=== PATIENT | female | born 1995 | race Caucasian/White ===

== ENCOUNTER 2018-06-29 09:16 | Emergency (ER) | payer OTHER, SELFPAY ==
[2018-06-29 09:23] VITALS: BP 105/64; PULSE 83; RESP 20; TEMP 36.4; O2SAT 99
--- NOTE | 2018-06-29 09:24 | ED_ITS ---
HPI - General Adult General Chief complaint: Urogenital-Female Stated complaint: Thinks kidney infection and sharp pain left chest Time Seen by Provider: 06/29/18 09:23 Source: patient Mode of arrival: ambulatory Limitations: no limitations History of Present Illness HPI narrative: Otherwise healthy 23-year-old female here for evaluation of dysuria and now right-sided abdominal and right flank pain. Patient states she does have a history of urinary tract infections and also has a history of kidney infections. She states this feels like 1 of her prior kidney infections. Symptoms started approximately 3 days ago. Started with dysuria and has now moved up. Has had some nausea but no vomiting. No fevers. No vaginal bleeding. Had her menstrual cycle last week. Patient without history of kidney stones. She is also here with complaining of pain in her left armpit. Stated that that has been going on for several days as well just worsening over the past couple days. No fevers. Was ?sick? last week. Related Data Home Medications Medication Instructions Recorded Confirmed levonorgestrel-ethinyl estrad 1 tab PO DAILY 06/29/18 06/29/18 [Orsythia] Previous Rx's Medication Instructions Recorded ondansetron 4 mg PO Q6-8H PRN #10 tab 06/29/18 sulfamethoxazole-trimethoprim 1 tab PO BID 14 Days #28 tab 06/29/18 [Bactrim DS] Allergies Allergy/AdvReac Type Severity Reaction Status Date / Time No Known Allergies Allergy Uncoded 12/01/17 12:41 Review of Systems Constitutional Reports fatigue, Denies fever(s) and Denies headache(s) ENT Ears, Nose, Mouth, and Throat: Denies headache(s) Cardiovascular Denies chest pain, Denies irregular heart rhythm, Denies palpitations and Denies dyspnea Comments: Left armpit pain Respiratory Denies cough and Denies dyspnea Gastrointestinal Gastrointestinal: Reports abdominal pain (Right-sided abdomen), Denies change in bowel habits, Denies diarrhea, Reports nausea and Denies vomiting Genitourinary Reports dysuria, Reports flank pain and Denies vaginal discharge Musculoskeletal Denies myalgias and Denies arthralgias Integumentary/Breasts Denies lesions and Denies rash Neurologic Denies headache(s) Endocrine Reports fatigue and Denies palpitations [facility] Medical History Healthy adult (Acute) Surgical History No pertinent past surgical history (Acute) Social History Smoking Status: Never smoker Exam Initial Vital Signs Initial Vital Signs: Vital Signs Temperature 97.6 F 06/29/18 09:23 Pulse Rate 83 06/29/18 09:23 Respiratory Rate 20 06/29/18 09:23 Blood Pressure 105/64 06/29/18 09:23 Pulse Oximetry 99 06/29/18 09:23 Const General: cooperative, healthy appearing, comfortable, well developed, well groomed and No acute distress Orientation: alert, awake and oriented x3 HENMT Head: normal to inspection and normocephalic Chest Breast Palpation: axillary lymphadenopathy (Left. The area of tenderness his a 2 cm freely movable tender or palpable firm mass in the left axilla consistent with a lymph node) Resp Effort & Inspection: normal respiratory effort Auscultation: clear to auscultation bilaterally Cardio Rate: regular rate Rhythm: regular rhythm GI Inspection: non-distended Palpation: soft, No firm, No rigid and No tender Back/Spine/Pelvis Back: CVA tenderness right Skin Lesions: no lesions Rashes: no rashes Neuro General: alert, awake and oriented x3 Cognition: normal cognition Speech: speech normal Motor: muscle tone normal throughout Sensory Exam: no sensory deficits noted Extrem General: normal to inspection and capillary refill normal Psych Appearance: grossly normal and well kempt Course Orders Ordered: ED Orders 06/29/18 09:34 Urine Culture Stat Urine Microscopic Stat Vital Signs - 8 hr 06/29/18 09:23 Temperature 97.6 F Pulse Rate 83 Respiratory Rate 20 Blood Pressure 105/64 Pulse Oximetry 99 Medical Decision Making Lab Data Lab Results 06/29/18 Range/Units 09:34 Urine RBC 1-5/hpf (0-5/HPF) Urine WBC >100/hpf H (0-5/HPF) Ur Squamous Epith Cells 1-5 /hpf Urine Bacteria Moderate (10-30) H (None) Urine Mucus 1+ H (Negative) Ur Culture Indicated? Specimen cultured Micro UA Comment Not Reportable Point of Care Testing Test Results Negative Urine Dip Bedside Urine Glucose Negative Bedside Urine Bilirubin - Negative Bedside Urine Ketone - Negative Urine Specific [place] 1.025 Bedside Urine Occult Blood +++ Bedside Urine pH 6.0 Bedside Urine Protein + 30 Bedside Urine Urobilinogen - Negative Bedside Urine Nitrite - Negative Bedside Urine Leukocytes +++ 500 Esterase Point of care testing: Point of Care Testing Test Results Negative Urine Dip Bedside Urine Glucose Negative Bedside Urine Bilirubin - Negative Bedside Urine Ketone - Negative Urine Specific [place] 1.025 Bedside Urine Occult Blood +++ Bedside Urine pH 6.0 Bedside Urine Protein + 30 Bedside Urine Urobilinogen - Negative Bedside Urine Nitrite - Negative Bedside Urine Leukocytes +++ 500 Esterase MDM Narrative Medical decision making narrative: Patient with left axillary lymphadenopathy. I discussed this with the patient. Informed her that if the area worsens or the skin over top the area becomes red she does need to be re-evaluated. Also informed her that if the lump slowly gets larger she does need to be re- evaluated as well. Her urine today is concerning for a urinary tract infection. Because she has some nausea and is moving up the right side into her right flank there is some concern about early pyelo. She is tolerating oral intake without any issue. She has never had a kidney stone before. She does have blood in her urine. I feel that since her symptoms started with dysuria and now is causing right flank pain, her clinical presentation, her history of kidney infections I feel just like this that a kidney stone is less likely so I will hold on a CT scan for now. Patient was given return precautions. She expressed understanding and agreement with plan. Discharge Plan Departure Patient Disposition: Home Clinical Impression: Lymphadenopathy, axillary, Urinary tract infection Instructions: DI for Kidney Infection, DI for Lymphadenopathy Activity Restrictions/Additional Instructions: Take all of the medications as directed. If the lump in her left armpit becomes larger, there develops a rash over the area, you develop fevers, then it does need to be re-evaluated. If her urinary symptoms do not improve over the next couple days or your unable to take the antibiotics you also need to be re-evaluated for this. Follow-up with your medical department. Prescriptions: New sulfamethoxazole-trimethoprim [Bactrim DS] 800-160 mg tablet 1 tab PO BID 14 Days Qty: 28 RF: 0 ondansetron 4 mg tablet,disintegrating 4 mg PO Q6-8H PRN (Reason: nausea and vomiting) Qty: 10 RF: 0 No Action levonorgestrel-ethinyl estrad [Orsythia] 0.1-20 mg-mcg tablet 1 tab PO DAILY RF: 0
[2018-06-29 09:51] LABS: Bacteria Urine Moderate (10-30); Culture Indicated Urine Specimen Cultured; Mucus Urine 1+ (Negative); RBC Urine 1-5/HPF (0-5/HPF); Squamous Epithelial Cell Urine 1-5 /HPF; WBC Urine >100/HPF (0-5/HPF)
== END 2018-06-29 10:10 | disposition home or self-care (01) ==
PROVIDERS: Emergency Provider Emergency Medicine
DX: N39.0 Urinary tract infection, site not specified (principal); R59.0 Localized enlarged lymph nodes
CPT/HCPCS: 81003; 81015; 81025; 87077; 87086; 87186; 99282; 99283

== ENCOUNTER 2018-07-23 14:16 | Emergency (ER) | payer OTHER, SELFPAY ==
[2018-07-23] VITALS (8 sets, daily range): BP systolic 93–114; BP diastolic 52–61; PULSE 82–99; RESP 14–16; TEMP 36.9; O2SAT 96–100
--- NOTE | 2018-07-23 15:06 | ED.HA ---
HPI - Headache <Milady Covarrubias PA-C - Last Filed: 07/23/18 21:31> General Chief Complaint: Headache Stated Complaint: states bad migraine, says sharp pain in chest Time Seen by Provider: 07/23/18 15:02 Source: patient Mode of arrival: ambulatory Limitations: no limitations History of Present Illness HPI Narrative: This 23-year-old female comes to ED with complaints of migraine headache for the last 4 days. She takes Maxalt and ibuprofen for this. She states that normally, headache will resolve if she rests in a dark quiet place and takes her medicines, however this time it has been waxing and waning, will resolve if she lays down to sleep, but comes back when she gets up again. She has nausea with this headache and states she does not typically with her migraines. She has not been vomiting. She has not had any urinary symptoms or bowel habit changes.she states that normally, she will feel migraines in the back of her head but this time it is more wrapping around from her temples and back of her neck. She denies any injury to her neck or shoulder area, states she is able to bend and move her neck okay, but feels tight. She has not had any recent upper respiratory symptoms, denies fever, chills, or sweats. She states that she has had swelling in her axillary nodes, mostly on the left recently and has been undergoing a workup for that including lab work and ultrasound with PCM. she reports that these were normal. She states that she does have mild cough occasionally, she denies any dyspnea today, but states that she does have some soreness in her chest when she breathes in and out that started around the same time as her headache. She denies any new pain or swelling in her extremities. She denies any recent travel. She denies any known exposures. She states that she does have TMJ and has been having pain in the right side of her jaw with chewing. She denies any possibility of , compliant with OCP. LMP 1 week ago. Related Data Home Medications Medication Instructions Recorded Confirmed levonorgestrel-ethinyl estrad 1 tab PO DAILY 06/29/18 06/29/18 [Orsythia] Previous Rx's Medication Instructions Recorded ondansetron 4 mg PO Q6-8H PRN #10 tab 11/07/18 Allergies Allergy/AdvReac Type Severity Reaction Status Date / Time No Known Allergies Allergy Uncoded 12/01/17 12:41 Review of Systems <Milady Covarrubias PA-C - Last Filed: 07/23/18 21:31> Review of Systems All systems reviewed & are unremarkable except as noted in HPI and below Exam <Milady Coavrrubias PA-C - Last Filed: 07/23/18 21:31> Narrative Exam Narrative: GENERAL APPEARANCE: Patient resting in the dark, in NAD HEENT: PERRL, EOMI, normal TMs and oropharynx NECK: Supple, tender anterior cervical nodes on the left, 1 is close to 1 cm in size. There are few smaller nodes on the right, nontender. No palpable supraclavicular or axillary nodes LUNGS: Clear to auscultation bilaterally. HEART: Rate and rhythm regular without murmur, normal S1 and S2, no S3 or S4. ABDOMEN: Soft, NT, ND, + BS x 4 quadrants NEUROLOGIC: Alert and oriented, normal speech, gait and coordination. MUSCULOSKELETAL: Full Csp AROM. No point tenderness over the C-spine. Tender at the suboccipital muscle insertions bilaterally DERM: No exanthem EXTREMITIES: No edema, no calf TTP Initial Vital Signs Initial Vital Signs: Vital Signs Temperature 98.5 F 07/23/18 14:23 Pulse Rate 99 H 07/23/18 14:23 Respiratory Rate 16 07/23/18 14:23 Blood Pressure 114/52 L 07/23/18 14:23 Pulse Oximetry 100 07/23/18 14:23 <Stephani Manzo DO - Last Filed: 07/25/18 07:13> Initial Vital Signs Initial Vital Signs: Vital Signs Temperature 98.5 F 07/23/18 14:23 Pulse Rate 99 H 07/23/18 14:23 Respiratory Rate 16 07/23/18 14:23 Blood Pressure 114/52 L 07/23/18 14:23 Pulse Oximetry 100 07/23/18 14:23 Course <Milady Covarrubias PA-C - Last Filed: 07/23/18 21:31> Additional Information: patient reported improvement prior to discharge. She did not have any vomiting while here, was sleeping comfortably and then on her cellphone screen (advised her to avoid this until headache better). Suspect some of her pain is muscular as she had neck and suboccipital tightness and Flexeril seemed to help. She feels comfortable resting at home tonight. We reviewed her lab and imaging findings including some elevation in her CRP. She had an elevated D-dimer and CT was done with no acute findings. Discussed that her chest discomfort may relate to the lymphadenopathy that she has had as she states that she has had axillary and supraclavicular nodes as well. She will follow up on this with her PCP. She agreed to return if any acutely worsening symptoms again in the interim. Orders Ordered: Discontinued Medications Hydrocodone Bitart/Acetaminophen ([place] 5/325) 1 tab PO NOW ONE Stop: 07/23/18 19:09 Last Admin: 07/23/18 19:31 Dose: 1 tab Cyclobenzaprine HCl (Flexeril) 10 mg PO NOW ONE Stop: 07/23/18 15:18 Last Admin: 07/23/18 15:28 Dose: 10 mg Cyclobenzaprine HCl (Flexeril 10 Mg Prepack) 1 bottle MISC SEEINSTR ONE Stop: 07/23/18 20:17 Last Admin: 07/23/18 20:30 Dose: 1 bottle Sodium Chloride (Normal Saline 0.9%) 1,000 mls @ 1,000 mls/hr IV BOLUS ONE Stop: 07/23/18 16:01 Last Infusion: 07/23/18 16:43 Dose: 0 mls/hr Admin: 07/23/18 15:25 Dose: 1,000 mls/hr Sodium Chloride (Normal Saline 0.9%) 1,000 mls @ 1,000 mls/hr IV BOLUS ONE Stop: 07/23/18 17:24 Last Infusion: 07/23/18 18:01 Dose: 0 mls/hr Admin: 07/23/18 16:57 Dose: 1,000 mls/hr Ketorolac Tromethamine (Toradol) 30 mg IM NOW ONE Stop: 07/23/18 15:16 Last Admin: 07/23/18 15:25 Dose: 30 mg Ketorolac Tromethamine (Toradol) 30 mg IV NOW ONE Stop: 07/23/18 15:35 Last Admin: 07/23/18 15:55 Dose: 30 mg Ondansetron HCl (Zofran) 4 mg IV NOW ONE Stop: 07/23/18 15:16 Last Admin: 07/23/18 15:28 Dose: 4 mg Vital Signs - 8 hr 07/23/18 14:23 07/23/18 15:30 07/23/18 16:00 Temperature 98.5 F Pulse Rate 99 H 86 86 Respiratory Rate 16 16 Blood Pressure 114/52 L Blood Pressure [Left Arm] 97/55 L 102/58 L Pulse Oximetry 100 100 100 07/23/18 16:30 07/23/18 17:00 07/23/18 17:30 Temperature Pulse Rate 84 85 82 Respiratory Rate 16 16 16 Blood Pressure Blood Pressure [Left Arm] 97/60 101/54 L 93/57 L Pulse Oximetry 100 100 100 07/23/18 18:00 07/23/18 20:05 Temperature Pulse Rate 82 92 H Respiratory Rate 14 16 Blood Pressure Blood Pressure [Left Arm] 94/57 L 99/61 Pulse Oximetry 100 96 <Stephani Manzo, - Last Filed: 07/25/18 07:13> Orders Ordered: Discontinued Medications Hydrocodone Bitart/Acetaminophen ([place] 5/325) 1 tab PO NOW ONE Stop: 07/23/18 19:09 Last Admin: 07/23/18 19:31 Dose: 1 tab Cyclobenzaprine HCl (Flexeril) 10 mg PO NOW ONE Stop: 07/23/18 15:18 Last Admin: 07/23/18 15:28 Dose: 10 mg Cyclobenzaprine HCl (Flexeril 10 Mg Prepack) 1 bottle MISC SEEINSTR ONE Stop: 07/23/18 20:17 Last Admin: 07/23/18 20:30 Dose: 1 bottle Sodium Chloride (Normal Saline 0.9%) 1,000 mls @ 1,000 mls/hr IV BOLUS ONE Stop: 07/23/18 16:01 Last Infusion: 07/23/18 16:43 Dose: 0 mls/hr Admin: 07/23/18 15:25 Dose: 1,000 mls/hr Sodium Chloride (Normal Saline 0.9%) 1,000 mls @ 1,000 mls/hr IV BOLUS ONE Stop: 07/23/18 17:24 Last Infusion: 07/23/18 18:01 Dose: 0 mls/hr Admin: 07/23/18 16:57 Dose: 1,000 mls/hr Ketorolac Tromethamine (Toradol) 30 mg IM NOW ONE Stop: 07/23/18 15:16 Last Admin: 07/23/18 15:25 Dose: 30 mg Ketorolac Tromethamine (Toradol) 30 mg IV NOW ONE Stop: 07/23/18 15:35 Last Admin: 07/23/18 15:55 Dose: 30 mg Ondansetron HCl (Zofran) 4 mg IV NOW ONE Stop: 07/23/18 15:16 Last Admin: 07/23/18 15:28 Dose: 4 mg Vital Signs - 8 hr 07/23/18 14:23 07/23/18 15:30 07/23/18 16:00 Temperature 98.5 F Pulse Rate 99 H 86 86 Respiratory Rate 16 16 Blood Pressure 114/52 L Blood Pressure [Left Arm] 97/55 L 102/58 L Pulse Oximetry 100 100 100 07/23/18 16:30 07/23/18 17:00 07/23/18 17:30 Temperature Pulse Rate 84 85 82 Respiratory Rate 16 16 16 Blood Pressure Blood Pressure [Left Arm] 97/60 101/54 L 93/57 L Pulse Oximetry 100 100 100 07/23/18 18:00 07/23/18 20:05 Temperature Pulse Rate 82 92 H Respiratory Rate 14 16 Blood Pressure Blood Pressure [Left Arm] 94/57 L 99/61 Pulse Oximetry 100 96 MDM - Headache <Milady Covarrubias PA-C - Last Filed: 07/23/18 21:31> Lab Data Attestation: I reviewed the patient's lab results. Result diagrams: 07/23/18 15:30 Lab Results 07/23/18 07/23/18 07/23/18 Range/Units 15:30 15:30 15:30 ESR 6 (0-20) MM/HR D-Dimer (<230) ng/mL Sodium 140 (137-145) mmol/L Potassium 4.1 (3.4-5.1) mmol/L Chloride 100 (98-107) mmol/L Carbon Dioxide 25 (22-32) mmol/L BUN 12 (7-17) mg/dL Creatinine 0.70 (0.52-1.04) mg/dL Estimated GFR > 60.0 (>60) mL/min BUN/Creatinine Ratio 17.1 (6-22) Glucose 88 (70-100) mg/dL Calcium 9.0 (8.4-10.2) mg/dL Total Bilirubin 0.5 (0.2-1.3) mg/dL AST 41 H (14-36) IU/L ALT 36 (9-52) IU/L Alkaline Phosphatase 67 (38-126) U/L C-Reactive Protein 5.2 H (<1.0) mg/dL Total Protein 7.6 (6.3-8.2) g/dL Albumin 4.6 (3.5-5.0) g/dL Globulin 3.0 (1.7-4.1) g/dL Albumin/Globulin Ratio 1.5 (1.0-2.8) Urine RBC (0-5/HPF) Urine WBC (0-5/HPF) Ur Squamous Epith Cells Urine Bacteria (None) Urine Mucus (Negative) Ur Culture Indicated? Micro UA Comment 07/23/18 07/23/18 Range/Units 15:31 16:47 ESR (0-20) MM/HR D-Dimer 948 H (<230) ng/mL Sodium (137-145) mmol/L Potassium (3.4-5.1) mmol/L Chloride (98-107) mmol/L Carbon Dioxide (22-32) mmol/L BUN (7-17) mg/dL Creatinine (0.52-1.04) mg/dL Estimated GFR (>60) mL/min BUN/Creatinine Ratio (6-22) Glucose (70-100) mg/dL Calcium (8.4-10.2) mg/dL Total Bilirubin (0.2-1.3) mg/dL AST (14-36) IU/L ALT (9-52) IU/L Alkaline Phosphatase (38-126) U/L C-Reactive Protein (<1.0) mg/dL Total Protein (6.3-8.2) g/dL Albumin (3.5-5.0) g/dL Globulin (1.7-4.1) g/dL Albumin/Globulin Ratio (1.0-2.8) Urine RBC None seen (0-5/HPF) Urine WBC None seen (0-5/HPF) Ur Squamous Epith Cells 5-10 /hpf H Urine Bacteria Few (2-10) H (None) Urine Mucus 3+ H D (Negative) Ur Culture Indicated? Cult not indicated Micro UA Comment Not Reportable Point of Care Testing Test Results Negative Urine Dip Bedside Urine Glucose Negative Bedside Urine Bilirubin - Negative Bedside Urine Ketone +/- 5 Urine Specific [place] 1.025 Bedside Urine Protein +/- 15 Bedside Urine Urobilinogen - Negative Bedside Urine Nitrite - Negative Bedside Urine Leukocytes - Negative Esterase Imaging Data Chest x-ray: Radiologist's impression: [address] [address] XRay Report Signed Patient: Lorena Treviño TMR#: [id number] : 1995Acct:[id number] Age/Sex: 23 / FDate of Service: 07/23/18 Loc: ED Accession Number: [id number] Procedure: XR chest 2V Ordering Provider: Milady Covarrubias P.A-C PROCEDURE: XR CHEST 2V INDICATIONS: chest pain TECHNIQUE: 2 views of the chest were acquired. COMPARISON: None. FINDINGS: Surgical changes and devices: None. Lungs and pleura: No pleural effusions or pneumothorax. Lungs are clear. Mediastinum: Mediastinal contours are normal. Heart size is normal. Bones and chest wall: No suspicious bony abnormalities. Soft tissues appear unremarkable. IMPRESSION: No acute cardiopulmonary disease process. Dictated by: Millicent Dos Santos MD, PhD on 07/23/2018 at 15:37 Approved by: Millicent Dos Santos MD, PhD on 07/23/2018 at 15:38 CT scan - chest: Radiologist's impression: [address] [address] [address] Scan Report Signed Patient: Lorena Treviño TMR#: [id number] : 1995Acct:[id number] Age/Sex: 23 / FDate of Service: 07/23/18 Loc: ED Accession Number: [id number] Procedure: CT angio chest PE protocol Ordering Provider: Milady Covarrubias P.A-C PROCEDURE: CT ANGIO CHEST PE PROTOCOL INDICATIONS: elevated d dimer, pleuritic CP TECHNIQUE: After the administration of intravenous contrast, 2 mm thick sections acquired from the pulmonary apices to the posterior costophrenic angles. 3-dimensional maximum intensity projection (MIP) coronal and sagittal reformats were then acquired through the thorax. For radiation dose reduction, the following was used: automated exposure control, adjustment of mA and/or kV according to patient size. COMPARISON: [facility], CR, XR CHEST 2V, 07/23/2018, 15:23. FINDINGS: Image quality: Excellent. Pulmonary arteries: Pulmonary arteries are normal in size, and demonstrate no intraluminal filling defects to suggest central pulmonary embolism. Lungs and pleura: Lungs are clear. No pleural effusions or pneumothorax. Central and peripheral airways are patent. Mediastinum: Heart size is normal, without pericardial effusion. No mediastinal or hilar adenopathy. Thoracic aorta is normal in caliber and enhancement. Esophagus is normal in caliber, without hiatal hernia. Bones and chest wall: No suspicious bony lesions. Ribs and thoracic spine appear intact throughout. No axillary or supraclavicular adenopathy. Abdomen: Visualized upper abdominal solid organs appear normal in the early arterial phase of enhancement. IMPRESSION: 1. No pulmonary embolus. 2. Lungs are clear. Dictated by: Millicent Dos Santos MD, PhD on 07/23/2018 at 18:52 Approved by: Millicent Dos Santos MD, PhD on 07/23/2018 at 18:53 <Stephani Manzo, DO - Last Filed: 07/25/18 07:13> Lab Data Lab Results 07/23/18 07/23/18 07/23/18 Range/Units 15:30 15:30 15:30 ESR 6 (0-20) MM/HR D-Dimer (<230) ng/mL Sodium 140 (137-145) mmol/L Potassium 4.1 (3.4-5.1) mmol/L Chloride 100 (98-107) mmol/L Carbon Dioxide 25 (22-32) mmol/L BUN 12 (7-17) mg/dL Creatinine 0.70 (0.52-1.04) mg/dL Estimated GFR > 60.0 (>60) mL/min BUN/Creatinine Ratio 17.1 (6-22) Glucose 88 (70-100) mg/dL Calcium 9.0 (8.4-10.2) mg/dL Total Bilirubin 0.5 (0.2-1.3) mg/dL AST 41 H (14-36) IU/L ALT 36 (9-52) IU/L Alkaline Phosphatase 67 (38-126) U/L C-Reactive Protein 5.2 H (<1.0) mg/dL Total Protein 7.6 (6.3-8.2) g/dL Albumin 4.6 (3.5-5.0) g/dL Globulin 3.0 (1.7-4.1) g/dL Albumin/Globulin Ratio 1.5 (1.0-2.8) Urine RBC (0-5/HPF) Urine WBC (0-5/HPF) Ur Squamous Epith Cells Urine Bacteria (None) Urine Mucus (Negative) Ur Culture Indicated? Micro UA Comment 07/23/18 07/23/18 Range/Units 15:31 16:47 ESR (0-20) MM/HR D-Dimer 948 H (<230) ng/mL Sodium (137-145) mmol/L Potassium (3.4-5.1) mmol/L Chloride (98-107) mmol/L Carbon Dioxide (22-32) mmol/L BUN (7-17) mg/dL Creatinine (0.52-1.04) mg/dL Estimated GFR (>60) mL/min BUN/Creatinine Ratio (6-22) Glucose (70-100) mg/dL Calcium (8.4-10.2) mg/dL Total Bilirubin (0.2-1.3) mg/dL AST (14-36) IU/L ALT (9-52) IU/L Alkaline Phosphatase (38-126) U/L C-Reactive Protein (<1.0) mg/dL Total Protein (6.3-8.2) g/dL Albumin (3.5-5.0) g/dL Globulin (1.7-4.1) g/dL Albumin/Globulin Ratio (1.0-2.8) Urine RBC None seen (0-5/HPF) Urine WBC None seen (0-5/HPF) Ur Squamous Epith Cells 5-10 /hpf H Urine Bacteria Few (2-10) H (None) Urine Mucus 3+ H D (Negative) Ur Culture Indicated? Cult not indicated Micro UA Comment Not Reportable Point of Care Testing Test Results Negative Urine Dip Bedside Urine Glucose Negative Bedside Urine Bilirubin - Negative Bedside Urine Ketone +/- 5 Urine Specific [place] 1.025 Bedside Urine Protein +/- 15 Bedside Urine Urobilinogen - Negative Bedside Urine Nitrite - Negative Bedside Urine Leukocytes - Negative Esterase Discharge Plan Departure Patient Disposition: Home Clinical Impression: Headache, Chest discomfort Discharge Date/Time: 07/23/18 20:33 Interventions: ED Discharge Assessment Last Done: 07/23/18 20:32 Instructions: DI for Migraine, DI for Atypical Chest Pain Activity Restrictions/Additional Instructions: since you are feeling better, you can return home tonight and rest. Your headache has some features of migraine but also some of muscle tension given your neck tightness, please rest at home in a quiet environment as you would for your migraine, including avoiding screen time. We have also given you a few of the muscle relaxant pills cyclobenzaprine that you can take tonight and tomorrow if you need to ( do not take them and drive as they can make you sleepy ). Continue ibuprofen as needed. Please be sure to call your PCP 1st thing on Wednesday and let them know you were seen in the emergency room so that you can follow up. Your testing today did not show an acute problem causing your chest discomfort. Your CT scan and x-rays did not show an acute problem with your heart or lungs. As we talked about, 1 of your inflammatory markers on your lab tests was somewhat elevated. This might relate to the swollen lymph node problem your telling me about that is being evaluated with your PCP. As we discussed, you should return to the closest ED should you have any acutely worsening symptoms prior to your follow-up. Prescriptions: No Action levonorgestrel-ethinyl estrad [Orsythia] 0.1-20 mg-mcg tablet 1 tab PO DAILY RF: 0 ondansetron 4 mg tablet,disintegrating 4 mg PO Q6-8H PRN (Reason: nausea and vomiting) Qty: 10 RF: 0 Referrals: [email or web address] [Provider Group] <Stephani Manzo DO - Last Filed: 07/25/18 07:13> Cosign ED Attending Cosperezature Attestation: I was immediately available in the department for consultation. This documentation has been reviewed and I agree with assessment and plan. Supervised by Stephani Manzo DO
--- NOTE | 2018-07-23 15:15 | DI.RAD.S_ITS ---
PROCEDURE: XR CHEST 2V INDICATIONS: chest pain TECHNIQUE: 2 views of the chest were acquired. COMPARISON: None. FINDINGS: Surgical changes and devices: None. Lungs and pleura: No pleural effusions or pneumothorax. Lungs are clear. Mediastinum: Mediastinal contours are normal. Heart size is normal. Bones and chest wall: No suspicious bony abnormalities. Soft tissues appear unremarkable. IMPRESSION: No acute cardiopulmonary disease process. Dictated by: Millicent Dos Santos MD, PhD on 07/23/2018 at 15:37 Approved by: Millicent Dos Santos MD, PhD on 07/23/2018 at 15:38
[2018-07-23] MEDS: SODIUM CHLORIDE 0.9% 1,000 ML 1000 ML IV ×2 (15:25→16:57)
[2018-07-23] MEDS: KETOROLAC 60 MG/2 ML VIAL 30 MG IM (15:25)
[2018-07-23] MEDS: CYCLOBENZAPRINE 10 MG TABLET PO (15:28)
[2018-07-23] MEDS: ONDANSETRON 4 MG/2 ML INJ IV (15:28)
--- NOTE | 2018-07-23 15:39 | ED_ITS ---
HPI - Headache <Milady Covarrubias PA-C - Last Filed: 07/23/18 21:31> General Chief Complaint: Headache Stated Complaint: states bad migraine, says sharp pain in chest Time Seen by Provider: 07/23/18 15:02 Source: patient Mode of arrival: ambulatory Limitations: no limitations History of Present Illness HPI Narrative: This 23-year-old female comes to ED with complaints of migraine headache for the last 4 days. She takes Maxalt and ibuprofen for this. She states that normally, headache will resolve if she rests in a dark quiet place and takes her medicines, however this time it has been waxing and waning, will resolve if she lays down to sleep, but comes back when she gets up again. She has nausea with this headache and states she does not typically with her migraines. She has not been vomiting. She has not had any urinary symptoms or bowel habit changes.she states that normally, she will feel migraines in the back of her head but this time it is more wrapping around from her temples and back of her neck. She denies any injury to her neck or shoulder area, states she is able to bend and move her neck okay, but feels tight. She has not had any recent upper respiratory symptoms, denies fever, chills, or sweats. She states that she has had swelling in her axillary nodes, mostly on the left recently and has been undergoing a workup for that including lab work and ultrasound with PCM. she reports that these were normal. She states that she does have mild cough occasionally, she denies any dyspnea today , but states that she does have some soreness in her chest when she breathes in and out that started around the same time as her headache. She denies any new pain or swelling in her extremities. She denies any recent travel. She denies any known exposures. She states that she does have TMJ and has been having pain in the right side of her jaw with chewing. She denies any possibility of , compliant with OCP. LMP 1 week ago. Related Data Home Medications Medication Instructions Recorded Confirmed levonorgestrel-ethinyl estrad 1 tab PO DAILY 06/29/18 06/29/18 [Orsythia] Previous Rx's Medication Instructions Recorded ondansetron 4 mg PO Q6-8H PRN #10 tab 11/07/18 Allergies Allergy/AdvReac Type Severity Reaction Status Date / Time No Known Allergies Allergy Uncoded 12/01/17 12:41 Review of Systems <Milady Covarrubias PA-C - Last Filed: 07/23/18 21:31> Review of Systems All systems reviewed & are unremarkable except as noted in HPI and below Exam <Milady Covarrubias PA-C - Last Filed: 07/23/18 21:31> Narrative Exam Narrative: GENERAL APPEARANCE: Patient resting in the dark, in NAD HEENT: PERRL, EOMI, normal TMs and oropharynx NECK: Supple, tender anterior cervical nodes on the left, 1 is close to 1 cm in size. There are few smaller nodes on the right, nontender. No palpable supraclavicular or axillary nodes LUNGS: Clear to auscultation bilaterally. HEART: Rate and rhythm regular without murmur, normal S1 and S2, no S3 or S4. ABDOMEN: Soft, NT, ND, + BS x 4 quadrants NEUROLOGIC: Alert and oriented, normal speech, gait and coordination. MUSCULOSKELETAL: Full Csp AROM. No point tenderness over the C-spine. Tender at the suboccipital muscle insertions bilaterally DERM: No exanthem EXTREMITIES: No edema, no calf TTP Initial Vital Signs Initial Vital Signs: Vital Signs Temperature 98.5 F 07/23/18 14:23 Pulse Rate 99 H 07/23/18 14:23 Respiratory Rate 16 07/23/18 14:23 Blood Pressure 114/52 L 07/23/18 14:23 Pulse Oximetry 100 07/23/18 14:23 <Stephani Manzo DO - Last Filed: 07/25/18 07:13> Initial Vital Signs Initial Vital Signs: Vital Signs Temperature 98.5 F 07/23/18 14:23 Pulse Rate 99 H 07/23/18 14:23 Respiratory Rate 16 07/23/18 14:23 Blood Pressure 114/52 L 07/23/18 14:23 Pulse Oximetry 100 07/23/18 14:23 Course <Milady Covarrubias PA-C - Last Filed: 07/23/18 21:31> Additional Information: patient reported improvement prior to discharge. She did not have any vomiting while here, was sleeping comfortably and then on her cellphone screen (advised her to avoid this until headache better). Suspect some of her pain is muscular as she had neck and suboccipital tightness and Flexeril seemed to help. She feels comfortable resting at home tonight. We reviewed her lab and imaging findings including some elevation in her CRP. She had an elevated D-dimer and CT was done with no acute findings. Discussed that her chest discomfort may relate to the lymphadenopathy that she has had as she states that she has had axillary and supraclavicular nodes as well. She will follow up on this with her PCP. She agreed to return if any acutely worsening symptoms again in the interim. Orders Ordered: Discontinued Medications Hydrocodone Bitart/Acetaminophen ([place] 5/325) 1 tab PO NOW ONE Stop: 07/23/18 19:09 Last Admin: 07/23/18 19:31 Dose: 1 tab Cyclobenzaprine HCl (Flexeril) 10 mg PO NOW ONE Stop: 07/23/18 15:18 Last Admin: 07/23/18 15:28 Dose: 10 mg Cyclobenzaprine HCl (Flexeril 10 Mg Prepack) 1 bottle MISC SEEINSTR ONE Stop: 07/23/18 20:17 Last Admin: 07/23/18 20:30 Dose: 1 bottle Sodium Chloride (Normal Saline 0.9%) 1,000 mls @ 1,000 mls/hr IV BOLUS ONE Stop: 07/23/18 16:01 Last Infusion: 07/23/18 16:43 Dose: 0 mls/hr Admin: 07/23/18 15:25 Dose: 1,000 mls/hr Sodium Chloride (Normal Saline 0.9%) 1,000 mls @ 1,000 mls/hr IV BOLUS ONE Stop: 07/23/18 17:24 Last Infusion: 07/23/18 18:01 Dose: 0 mls/hr Admin: 07/23/18 16:57 Dose: 1,000 mls/hr Ketorolac Tromethamine (Toradol) 30 mg IM NOW ONE Stop: 07/23/18 15:16 Last Admin: 07/23/18 15:25 Dose: 30 mg Ketorolac Tromethamine (Toradol) 30 mg IV NOW ONE Stop: 07/23/18 15:35 Last Admin: 07/23/18 15:55 Dose: 30 mg Ondansetron HCl (Zofran) 4 mg IV NOW ONE Stop: 07/23/18 15:16 Last Admin: 07/23/18 15:28 Dose: 4 mg Vital Signs - 8 hr 07/23/18 14:23 07/23/18 15:30 07/23/18 16:00 Temperature 98.5 F Pulse Rate 99 H 86 86 Respiratory Rate 16 16 Blood Pressure 114/52 L Blood Pressure [Left Arm] 97/55 L 102/58 L Pulse Oximetry 100 100 100 07/23/18 16:30 07/23/18 17:00 07/23/18 17:30 Temperature Pulse Rate 84 85 82 Respiratory Rate 16 16 16 Blood Pressure Blood Pressure [Left Arm] 97/60 101/54 L 93/57 L Pulse Oximetry 100 100 100 07/23/18 18:00 07/23/18 20:05 Temperature Pulse Rate 82 92 H Respiratory Rate 14 16 Blood Pressure Blood Pressure [Left Arm] 94/57 L 99/61 Pulse Oximetry 100 96 <Stephani Manzo, - Last Filed: 07/25/18 07:13> Orders Ordered: Discontinued Medications Hydrocodone Bitart/Acetaminophen ([place] 5/325) 1 tab PO NOW ONE Stop: 07/23/18 19:09 Last Admin: 07/23/18 19:31 Dose: 1 tab Cyclobenzaprine HCl (Flexeril) 10 mg PO NOW ONE Stop: 07/23/18 15:18 Last Admin: 07/23/18 15:28 Dose: 10 mg Cyclobenzaprine HCl (Flexeril 10 Mg Prepack) 1 bottle MISC SEEINSTR ONE Stop: 07/23/18 20:17 Last Admin: 07/23/18 20:30 Dose: 1 bottle Sodium Chloride (Normal Saline 0.9%) 1,000 mls @ 1,000 mls/hr IV BOLUS ONE Stop: 07/23/18 16:01 Last Infusion: 07/23/18 16:43 Dose: 0 mls/hr Admin: 07/23/18 15:25 Dose: 1,000 mls/hr Sodium Chloride (Normal Saline 0.9%) 1,000 mls @ 1,000 mls/hr IV BOLUS ONE Stop: 07/23/18 17:24 Last Infusion: 07/23/18 18:01 Dose: 0 mls/hr Admin: 07/23/18 16:57 Dose: 1,000 mls/hr Ketorolac Tromethamine (Toradol) 30 mg IM NOW ONE Stop: 07/23/18 15:16 Last Admin: 07/23/18 15:25 Dose: 30 mg Ketorolac Tromethamine (Toradol) 30 mg IV NOW ONE Stop: 07/23/18 15:35 Last Admin: 07/23/18 15:55 Dose: 30 mg Ondansetron HCl (Zofran) 4 mg IV NOW ONE Stop: 07/23/18 15:16 Last Admin: 07/23/18 15:28 Dose: 4 mg Vital Signs - 8 hr 07/23/18 14:23 07/23/18 15:30 07/23/18 16:00 Temperature 98.5 F Pulse Rate 99 H 86 86 Respiratory Rate 16 16 Blood Pressure 114/52 L Blood Pressure [Left Arm] 97/55 L 102/58 L Pulse Oximetry 100 100 100 07/23/18 16:30 07/23/18 17:00 07/23/18 17:30 Temperature Pulse Rate 84 85 82 Respiratory Rate 16 16 16 Blood Pressure Blood Pressure [Left Arm] 97/60 101/54 L 93/57 L Pulse Oximetry 100 100 100 07/23/18 18:00 07/23/18 20:05 Temperature Pulse Rate 82 92 H Respiratory Rate 14 16 Blood Pressure Blood Pressure [Left Arm] 94/57 L 99/61 Pulse Oximetry 100 96 MDM - Headache <Milady Covarrubias PA-C - Last Filed: 07/23/18 21:31> Lab Data Attestation: I reviewed the patient's lab results. Result diagrams: 07/23/18 15:30 Lab Results 07/23/18 07/23/18 07/23/18 Range/Units 15:30 15:30 15:30 ESR 6 (0-20) MM/HR D-Dimer (<230) ng/mL Sodium 140 (137-145) mmol/L Potassium 4.1 (3.4-5.1) mmol/L Chloride 100 (98-107) mmol/L Carbon Dioxide 25 (22-32) mmol/L BUN 12 (7-17) mg/dL Creatinine 0.70 (0.52-1.04) mg/dL Estimated GFR > 60.0 (>60) mL/min BUN/Creatinine Ratio 17.1 (6-22) Glucose 88 (70-100) mg/dL Calcium 9.0 (8.4-10.2) mg/dL Total Bilirubin 0.5 (0.2-1.3) mg/dL AST 41 H (14-36) IU/L ALT 36 (9-52) IU/L Alkaline Phosphatase 67 (38-126) U/L C-Reactive Protein 5.2 H (<1.0) mg/dL Total Protein 7.6 (6.3-8.2) g/dL Albumin 4.6 (3.5-5.0) g/dL Globulin 3.0 (1.7-4.1) g/dL Albumin/Globulin Ratio 1.5 (1.0-2.8) Urine RBC (0-5/HPF) Urine WBC (0-5/HPF) Ur Squamous Epith Cells Urine Bacteria (None) Urine Mucus (Negative) Ur Culture Indicated? Micro UA Comment 07/23/18 07/23/18 Range/Units 15:31 16:47 ESR (0-20) MM/HR D-Dimer 948 H (<230) ng/mL Sodium (137-145) mmol/L Potassium (3.4-5.1) mmol/L Chloride (98-107) mmol/L Carbon Dioxide (22-32) mmol/L BUN (7-17) mg/dL Creatinine (0.52-1.04) mg/dL Estimated GFR (>60) mL/min BUN/Creatinine Ratio (6-22) Glucose (70-100) mg/dL Calcium (8.4-10.2) mg/dL Total Bilirubin (0.2-1.3) mg/dL AST (14-36) IU/L ALT (9-52) IU/L Alkaline Phosphatase (38-126) U/L C-Reactive Protein (<1.0) mg/dL Total Protein (6.3-8.2) g/dL Albumin (3.5-5.0) g/dL Globulin (1.7-4.1) g/dL Albumin/Globulin Ratio (1.0-2.8) Urine RBC None seen (0-5/HPF) Urine WBC None seen (0-5/HPF) Ur Squamous Epith Cells 5-10 /hpf H Urine Bacteria Few (2-10) H (None) Urine Mucus 3+ H D (Negative) Ur Culture Indicated? Cult not indicated Micro UA Comment Not Reportable Point of Care Testing Test Results Negative Urine Dip Bedside Urine Glucose Negative Bedside Urine Bilirubin - Negative Bedside Urine Ketone +/- 5 Urine Specific [place] 1.025 Bedside Urine Protein +/- 15 Bedside Urine Urobilinogen - Negative Bedside Urine Nitrite - Negative Bedside Urine Leukocytes - Negative Esterase Imaging Data Chest x-ray: Radiologist's impression: [address] [address] XRay Report Signed Patient: Lorena Treviño TMR#: [id number] : 1995Acct:[id number] Age/Sex: 23 / FDate of Service: 07/23/18 Loc: ED Accession Number: [id number] Procedure: XR chest 2V Ordering Provider: Milady Covarrubias P.A-C PROCEDURE: XR CHEST 2V INDICATIONS: chest pain TECHNIQUE: 2 views of the chest were acquired. COMPARISON: None. FINDINGS: Surgical changes and devices: None. Lungs and pleura: No pleural effusions or pneumothorax. Lungs are clear. Mediastinum: Mediastinal contours are normal. Heart size is normal. Bones and chest wall: No suspicious bony abnormalities. Soft tissues appear unremarkable. IMPRESSION: No acute cardiopulmonary disease process. Dictated by: Millicent Dos Santos MD, PhD on 07/23/2018 at 15:37 Approved by: Millicent Dos Santos MD, PhD on 07/23/2018 at 15:38 CT scan - chest: Radiologist's impression: [address] [address] [address] Scan Report Signed Patient: Lorena Treviño TMR#: [id number] : 1995Acct:[id number] Age/Sex: 23 / FDate of Service: 07/23/18 Loc: ED Accession Number: [id number] Procedure: CT angio chest PE protocol Ordering Provider: Milady Covarrubias P.A-C PROCEDURE: CT ANGIO CHEST PE PROTOCOL INDICATIONS: elevated d dimer, pleuritic CP TECHNIQUE: After the administration of intravenous contrast, 2 mm thick sections acquired from the pulmonary apices to the posterior costophrenic angles. 3-dimensional maximum intensity projection (MIP) coronal and sagittal reformats were then acquired through the thorax. For radiation dose reduction, the following was used: automated exposure control, adjustment of mA and/or kV according to patient size. COMPARISON: [facility], CR, XR CHEST 2V, 07/23/2018, 15:23. FINDINGS: Image quality: Excellent. Pulmonary arteries: Pulmonary arteries are normal in size, and demonstrate no intraluminal filling defects to suggest central pulmonary embolism. Lungs and pleura: Lungs are clear. No pleural effusions or pneumothorax. Central and peripheral airways are patent. Mediastinum: Heart size is normal, without pericardial effusion. No mediastinal or hilar adenopathy. Thoracic aorta is normal in caliber and enhancement. Esophagus is normal in caliber, without hiatal hernia. Bones and chest wall: No suspicious bony lesions. Ribs and thoracic spine appear intact throughout. No axillary or supraclavicular adenopathy. Abdomen: Visualized upper abdominal solid organs appear normal in the early arterial phase of enhancement. IMPRESSION: 1. No pulmonary embolus. 2. Lungs are clear. Dictated by: Millicent Dos Santos MD, PhD on 07/23/2018 at 18:52 Approved by: Millicent Dos Santos MD, PhD on 07/23/2018 at 18:53 <Stephani Manzo, DO - Last Filed: 07/25/18 07:13> Lab Data Lab Results 07/23/18 07/23/18 07/23/18 Range/Units 15:30 15:30 15:30 ESR 6 (0-20) MM/HR D-Dimer (<230) ng/mL Sodium 140 (137-145) mmol/L Potassium 4.1 (3.4-5.1) mmol/L Chloride 100 (98-107) mmol/L Carbon Dioxide 25 (22-32) mmol/L BUN 12 (7-17) mg/dL Creatinine 0.70 (0.52-1.04) mg/dL Estimated GFR > 60.0 (>60) mL/min BUN/Creatinine Ratio 17.1 (6-22) Glucose 88 (70-100) mg/dL Calcium 9.0 (8.4-10.2) mg/dL Total Bilirubin 0.5 (0.2-1.3) mg/dL AST 41 H (14-36) IU/L ALT 36 (9-52) IU/L Alkaline Phosphatase 67 (38-126) U/L C-Reactive Protein 5.2 H (<1.0) mg/dL Total Protein 7.6 (6.3-8.2) g/dL Albumin 4.6 (3.5-5.0) g/dL Globulin 3.0 (1.7-4.1) g/dL Albumin/Globulin Ratio 1.5 (1.0-2.8) Urine RBC (0-5/HPF) Urine WBC (0-5/HPF) Ur Squamous Epith Cells Urine Bacteria (None) Urine Mucus (Negative) Ur Culture Indicated? Micro UA Comment 07/23/18 07/23/18 Range/Units 15:31 16:47 ESR (0-20) MM/HR D-Dimer 948 H (<230) ng/mL Sodium (137-145) mmol/L Potassium (3.4-5.1) mmol/L Chloride (98-107) mmol/L Carbon Dioxide (22-32) mmol/L BUN (7-17) mg/dL Creatinine (0.52-1.04) mg/dL Estimated GFR (>60) mL/min BUN/Creatinine Ratio (6-22) Glucose (70-100) mg/dL Calcium (8.4-10.2) mg/dL Total Bilirubin (0.2-1.3) mg/dL AST (14-36) IU/L ALT (9-52) IU/L Alkaline Phosphatase (38-126) U/L C-Reactive Protein (<1.0) mg/dL Total Protein (6.3-8.2) g/dL Albumin (3.5-5.0) g/dL Globulin (1.7-4.1) g/dL Albumin/Globulin Ratio (1.0-2.8) Urine RBC None seen (0-5/HPF) Urine WBC None seen (0-5/HPF) Ur Squamous Epith Cells 5-10 /hpf H Urine Bacteria Few (2-10) H (None) Urine Mucus 3+ H D (Negative) Ur Culture Indicated? Cult not indicated Micro UA Comment Not Reportable Point of Care Testing Test Results Negative Urine Dip Bedside Urine Glucose Negative Bedside Urine Bilirubin - Negative Bedside Urine Ketone +/- 5 Urine Specific [place] 1.025 Bedside Urine Protein +/- 15 Bedside Urine Urobilinogen - Negative Bedside Urine Nitrite - Negative Bedside Urine Leukocytes - Negative Esterase Discharge Plan Departure Patient Disposition: Home Clinical Impression: Headache, Chest discomfort Discharge Date/Time: 07/23/18 20:33 Interventions: ED Discharge Assessment Last Done: 07/23/18 20:32 Instructions: DI for Migraine, DI for Atypical Chest Pain Activity Restrictions/Additional Instructions: since you are feeling better, you can return home tonight and rest. Your headache has some features of migraine but also some of muscle tension given your neck tightness, please rest at home in a quiet environment as you would for your migraine, including avoiding screen time. We have also given you a few of the muscle relaxant pills cyclobenzaprine that you can take tonight and tomorrow if you need to ( do not take them and drive as they can make you sleepy ). Continue ibuprofen as needed. Please be sure to call your PCP 1st thing on Wednesday and let them know you were seen in the emergency room so that you can follow up. Your testing today did not show an acute problem causing your chest discomfort. Your CT scan and x-rays did not show an acute problem with your heart or lungs. As we talked about, 1 of your inflammatory markers on your lab tests was somewhat elevated. This might relate to the swollen lymph node problem your telling me about that is being evaluated with your PCP. As we discussed, you should return to the closest ED should you have any acutely worsening symptoms prior to your follow-up. Prescriptions: No Action levonorgestrel-ethinyl estrad [Orsythia] 0.1-20 mg-mcg tablet 1 tab PO DAILY RF: 0 ondansetron 4 mg tablet,disintegrating 4 mg PO Q6-8H PRN (Reason: nausea and vomiting) Qty: 10 RF: 0 [facility]: [facility] <Stephani Manzo DO - Last Filed: 07/25/18 07:13> Cosign ED Attending Cosperezature Attestation: I was immediately available in the department for consultation. This documentation has been reviewed and I agree with assessment and plan. Supervised by Stephani Manzo DO
[2018-07-23 15:46] LABS: RBC Urine None Seen (0-5/HPF); WBC Urine None Seen (0-5/HPF)
[2018-07-23] MEDS: KETOROLAC 60 MG/2 ML VIAL 30 MG IV (15:55)
[2018-07-23 15:58] LABS: Bacteria Urine Few (2-10); Culture Indicated Urine Cult Not Indicated; Mucus Urine 3+ (Negative); Squamous Epithelial Cell Urine 5-10 /HPF
[2018-07-23 16:00] LABS: Alanine Aminotransferase 36 IU/L (9-52); Albumin 4.6 g/dL (3.5-5.0); Albumin Globulin Ratio 1.5 (1.0-2.8); Alkaline Phosphatase 67 U/L (38-126); Aspartate Aminotransferase 41 IU/L (14-36); BUN Creatinine Ratio 17.1 (6-22); Bilirubin Total 0.5 mg/dL (0.2-1.3); Blood Urea Nitrogen 12 mg/dL (7-17); Carbon Dioxide 25 mmol/L (22-32); Chloride 100 mmol/L (98-107); Estimated Glomerular Filt Rate > 60.0 mL/min (>60); Glucose 88 mg/dL (70-100); HEMOLYSIS < 15 (0-50); Potassium 4.1 mmol/L (3.4-5.1); Sodium 140 mmol/L (137-145); Total Protein 7.6 g/dL (6.3-8.2)
[2018-07-23 16:04] LABS: C-Reactive Protein Quant 5.2 mg/dL (<1.0); Erythrocyte Sedimentation Rate 6 MM/HR (0-20)
--- NOTE | 2018-07-23 16:59 | PC.NURSE ---
still has mid sternal pain, radiating to her left scapular, sxs for 3 days, same as headache.
[2018-07-23 17:22] LABS: D Dimer 948 ng/mL (<230)
--- NOTE | 2018-07-23 17:38 | DI.CT.S_ITS ---
PROCEDURE: CT ANGIO CHEST PE PROTOCOL INDICATIONS: elevated d dimer, pleuritic CP TECHNIQUE: After the administration of intravenous contrast, 2 mm thick sections acquired from the pulmonary apices to the posterior costophrenic angles. 3-dimensional maximum intensity projection (MIP) coronal and sagittal reformats were then acquired through the thorax. For radiation dose reduction, the following was used: automated exposure control, adjustment of mA and/or kV according to patient size. COMPARISON: [facility], CR, XR CHEST 2V, 07/23/2018, 15:23. FINDINGS: Image quality: Excellent. Pulmonary arteries: Pulmonary arteries are normal in size, and demonstrate no intraluminal filling defects to suggest central pulmonary embolism. Lungs and pleura: Lungs are clear. No pleural effusions or pneumothorax. Central and peripheral airways are patent. Mediastinum: Heart size is normal, without pericardial effusion. No mediastinal or hilar adenopathy. Thoracic aorta is normal in caliber and enhancement. Esophagus is normal in caliber, without hiatal hernia. Bones and chest wall: No suspicious bony lesions. Ribs and thoracic spine appear intact throughout. No axillary or supraclavicular adenopathy. Abdomen: Visualized upper abdominal solid organs appear normal in the early arterial phase of enhancement. IMPRESSION: 1. No pulmonary embolus. 2. Lungs are clear. Dictated by: Millicent Dos Santos MD, PhD on 07/23/2018 at 18:52 Approved by: Millicent Dos Santos MD, PhD on 07/23/2018 at 18:53
[2018-07-23] MEDS: HYDROCODONE/ACET 5/325 TABLET 1 TAB PO (19:31)
--- NOTE | 2018-07-23 19:35 | PC.NURSE ---
Pt requested IV DC. States It just really sucks. Pt thanked staff for IV DC. Pt resting calmly on stretcher with sig other at bedside with lights off and quiet enlivenment.
[2018-07-23] MEDS: CYCLOBENZAPRINE 10 MG PREPACK 1 BOTTLE MISC (20:30)
== END 2018-07-23 20:33 | disposition home or self-care (01) ==
PROVIDERS: Emergency Provider Internal Medicine
DX: R51 Headache (principal); R07.89 Other chest pain
CPT/HCPCS: 36591; 71046; 71275; 80053; 81003; 81015; 81025; 85379; 85651; 86140; 96361; 96374; 96375; 99284; 99285; J1885; J2405; Q9967

== ENCOUNTER → 2018-09-19 09:46 | Outpatient (CLI) | payer OTHER, SELFPAY ==
--- NOTE | 2018-09-19 | DI.MRI.S_ITS ---
PROCEDURE: MR ANKLE RT WO CON INDICATIONS: Right calcaneal bursitis. TECHNIQUE: Noncontrast sagittal T1 spin echo and T2 fast spin echo with fat saturation, axial proton density fast spin echo and T2 fast spin echo with fat saturation, coronal T1 spin echo and T2 fast spin echo with fat saturation through the ankle/hindfoot. COMPARISON: None. FINDINGS: Image quality: There is mild motion artifact and mild inhomogeneous fat saturation. Bones and joints: No bone marrow contusions or fractures. No hindfoot coalitions. No osteochondral injuries of the talar dome. No pathologic joint effusions. Medial structures: The posterior tibialis, flexor digitorum longus, and flexor hallucis longus tendons are intact. The posterior tibial neurovascular bundle appears normal within the tarsal tunnel, without extrinsic mass effect. The deltoid and spring ligaments appear intact. Lateral structures: The anterior talofibular, calcaneofibular, and posterior talofibular ligaments appear intact. More superiorly, the anterior and posterior tibiofibular ligaments appear intact, as is the intermalleolar ligament. The tibiofibular syndesmosis is normal in width at 2 mm or less. The peroneus longus and brevis tendons demonstrate normal location and morphology. Adjacent bony peroneal tubercle and retrotrochlear prominence are normal in size. The sinus tarsi demonstrates preserved fatty signal. The calcaneonavicular and calcaneocuboid components of the bifurcate ligament appear intact. The dorsal calcaneocuboid ligament appears intact. Anterior structures: The tibialis anterior, extensor hallucis longus, and extensor digitorum longus tendons appear intact. The dorsal talonavicular ligament appears intact. Posterior and plantar structures: Achilles tendon is intact. There is mild posterior peritendinous subcutaneous edema. Trace fluid is demonstrated in the retrocalcaneal bursa with minimal associated edema. Medial and lateral bands of the plantar fascia are of normal thickness without associated edema. No abductor digiti quinti muscle atrophy to suggest Draper neuropathy. IMPRESSION: 1. Mild peritendinous subcutaneous edema posteriorly suggesting mild bursitis of the subcutaneous calcaneal bursa. 2. Trace fluid in the retrocalcaneal bursa with minimal associated edema. 3. Intact Achilles tendon. Dictated by: Hema Cooley M.D. on 09/19/2018 at 15:45 Approved by: Hema Cooley M.D. on 09/19/2018 at 16:00
== END ==
PROVIDERS: Visit Provider Podiatrist
DX: M77.51 Other enthesopathy of right foot and ankle (principal)
CPT/HCPCS: 73721

== ENCOUNTER → 2018-09-21 09:11 | Outpatient (CLI) | payer OTHER, SELFPAY ==
[2018-09-21 10:16] LABS: Rheumatoid Factor < 8.6 IU/mL (<12.0)
[2018-09-21 10:17] LABS: Uric Acid 3.6 mg/dL (2.5-6.2)
[2018-09-21 10:20] LABS: C-Reactive Protein Quant < 0.5 mg/dL (<1.0)
[2018-09-21 10:27] LABS: Erythrocyte Sedimentation Rate 4 MM/HR (0-20)
[2018-09-22 20:14] LABS: ANA Screen, IFA Negative (Negative)
[2018-09-23 14:35] LABS: HLA B27 NEGATIVE (Negative)
== END ==
PROVIDERS: Visit Provider Podiatrist
DX: M77.51 Other enthesopathy of right foot and ankle (principal); M79.671 Pain in right foot; R26.2 Difficulty in walking, not elsewhere classified
CPT/HCPCS: 36415; 84550; 85651; 86038; 86140; 86430; 86812

== ENCOUNTER 2019-01-21 08:19 | Emergency (ER) | payer OTHER, SELFPAY ==
[2019-01-21 08:24] VITALS: BP 108/62; PULSE 68; RESP 18; TEMP 36.9; O2SAT 98; BMI 23.8
--- NOTE | 2019-01-21 08:37 | ED.PREGNANCY ---
HPI - General Chief complaint: OB/Uterine Contractions Stated complaint: brown spotting, 7 weeks Time Seen by Provider: 01/21/19 08:36 Source: patient and family ( at bedside.) Mode of arrival: ambulatory Limitations: no limitations History of Present Illness HPI Narrative: This is a 23-year-old female comes to the emergency department with complaint of spotting. Patient states she is about 7 weeks . Her last menstrual period was December 02, 2018. She states she normally has regular periods. She states that she noticed a little bit of bright red blood last night very small amount and then a little bit of brownish blood this morning. Patient states that she has been quite constipated, she has had to strain it has been painful when she has a bowel movement. He denies any active abdominal pain at this time. She has not had any passing out. Occasionally feels a little lightheaded. She has had nausea and occasional vomiting. She denies any chest pain or shortness of breath. She denies any medical issues other than some nerve damage in one foot. She is taking prenatals and vitamin B6. Patient has not had any care to this point. She has a schedule appointment at 10 weeks at the [facility] but has not been assigned a provider. Patient denies any surgeries. She does not smoke, she does not drink any alcohol or use any illicit. She is accompanied by her . Date of Last Menstrual Period: 12/02/18 Patient : Yes Expected Date of Delivery: 09/08/19 Related Data Home Medications Medication Instructions Recorded Confirmed PNV cmb#95-ferrous fumarate-FA 1 tab PO DAILY 01/21/19 01/21/19 [] pyridoxine (vitamin B6) [Vitamin 50 mg PO DAILY 01/21/19 01/21/19 B-6] Previous Rx's Medication Instructions Recorded cephalexin [Keflex] 500 mg PO BID #10 cap 01/21/19 Allergies Allergy/AdvReac Type Severity Reaction Status Date / Time No Known Allergies Allergy Uncoded 01/21/19 08:27 Review of Systems Review of Systems ROS Unobtainable: All systems reviewed & are unremarkable except as noted in HPI and below Constitutional Denies chills and Denies fever(s) Cardiovascular Denies chest pain, Denies syncope, Denies irregular heart rhythm, Reports lightheadedness (mild occasional), Denies palpitations, Denies dyspnea and Denies dyspnea on exertion Respiratory Denies dyspnea and Denies dyspnea on exertion Gastrointestinal Gastrointestinal: Denies abdominal pain, Denies melena, Denies hematochezia, Denies change in bowel habits, Reports constipation, Denies diarrhea, Reports nausea (daily) and Reports vomiting (occasionally) Genitourinary Reports as per HPI, Reports abnormal vaginal bleeding, Denies hematuria, Denies urinary frequency, Denies flank pain, Denies urinary incontinence, Denies urinary hesitancy, Denies urinary urgency and Denies vaginal discharge Neurologic Denies syncope Endocrine Denies palpitations PMFSH - Past Medical History 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 Surgical history: Reports no surgical history Date of Last Menstrual Period: 12/02/18 Patient : Yes Expected Date of Delivery: 09/08/19 Exam Narrative Exam Narrative: GENERAL: Alert and oriented x three, well-nourished, well-appearing female in no acute distress. HEENT: Head normocephalic, atraumatic, EOMI, pupils reactive, face symmetric, moist mucous membranes NECK: Supple, full range of motion CARDIOVASCULAR: Regular rate and rhythm without murmurs, rubs or gallops. RESPIRATORY: Breath sounds equal bilaterally, no wheezes rales or rhonchi. ABDOMEN: Soft, nontender. Normoactive bowel sounds all 4 quadrants. No guarding or rebound, rigidity, no mass : No CVA tenderness EXTREMITIES: Normal range of motion, no clubbing or edema. Neurovascularly intact NEUROLOGICAL: Cranial nerves II through XII grossly intact. Moving all extremities SKIN: Warm, dry, no petechiae, no rashes or lesions. Initial Vital Signs Initial Vital Signs: Vital Signs Temperature 98.4 F 01/21/19 08:24 Pulse Rate 68 01/21/19 08:24 Respiratory Rate 18 01/21/19 08:24 Blood Pressure 108/62 01/21/19 08:24 Pulse Oximetry 98 01/21/19 08:24 Course Orders Ordered: ED Orders 01/21/19 09:53 Urine Culture Stat Urine Microscopic Stat Vital Signs - 8 hr 01/21/19 08:24 01/21/19 10:02 Temperature 98.4 F Pulse Rate 68 68 Respiratory Rate 18 18 Blood Pressure 108/62 Blood Pressure [Right Arm] 88/45 L Pulse Oximetry 98 100 MDM - OB/Uterine Contractions Lab Data Attestation: I reviewed the patient's lab results. Result diagrams: 01/21/19 08:51 Lab Results 01/21/19 01/21/19 01/21/19 Range/Units 08:51 08:51 08:51 WBC 8.1 (4.5-11.0) X10^3/uL RBC 4.48 (4.0-5.2) X10^6/uL Hgb 13.5 (12.0-16.0) g/dL Hct 39.3 (36-46) % MCV 87.7 (80-100) fL MCH 30.2 (26-34) PG MCHC 34.4 (30-36) % RDW 13.0 (11.6-14.8) % Plt Count 203 (150-400) X10^3/uL Neut % (Auto) 73.7 (50-75) % Lymph % (Auto) 17.9 L (25-40) % [place] % (Auto) 7.2 (3-14) % Eos % (Auto) 0.7 L (2-4) % Baso % (Auto) 0.5 (0-2) % Neut # (Auto) 6000 (9465-3381) /uL Lymph # (Auto) 1400 (0450-4428) /uL [place] # (Auto) 600 (0-900) /uL Eos # (Auto) 100 (0-450) /uL Baso # (Auto) 0 (0-100) /uL HCG, Quant 666170 mIU/mL Urine RBC (0-5/HPF) Urine WBC (0-5/HPF) Ur Squamous Epith Cells (0-5/HPF) Ur Transition Epith Cell (0-5/HPF) Urine Bacteria (None) Ur Culture Indicated? Micro UA Comment Blood Type O Positive 01/21/19 Range/Units 09:53 WBC (4.5-11.0) X10^3/uL RBC (4.0-5.2) X10^6/uL Hgb (12.0-16.0) g/dL Hct (36-46) % MCV (80-100) fL MCH (26-34) PG MCHC (30-36) % RDW (11.6-14.8) % Plt Count (150-400) X10^3/uL Neut % (Auto) (50-75) % Lymph % (Auto) (25-40) % [place] % (Auto) (3-14) % Eos % (Auto) (2-4) % Baso % (Auto) (0-2) % Neut # (Auto) (2743-1809) /uL Lymph # (Auto) (2178-5020) /uL [place] # (Auto) (0-900) /uL Eos # (Auto) (0-450) /uL Baso # (Auto) (0-100) /uL HCG, Quant mIU/mL Urine RBC 1-5/hpf (0-5/HPF) Urine WBC 1-5/hpf (0-5/HPF) Ur Squamous Epith Cells 5-10 /hpf H (0-5/HPF) Ur Transition Epith Cell 1-5/hpf (0-5/HPF) Urine Bacteria Few (2-10) H (None) Ur Culture Indicated? Specimen cultured Micro UA Comment + gene esterase Blood Type Point of Care Testing Test Results Positive Urine Dip Bedside Urine Glucose Negative Bedside Urine Bilirubin - Negative Bedside Urine Ketone - Negative Urine Specific [place] 1.015 Bedside Urine Occult Blood +/- Bedside Urine pH 6.5 Bedside Urine Protein - Negative Bedside Urine Urobilinogen - Negative Bedside Urine Nitrite - Negative Bedside Urine Leukocytes + 70 Esterase Imaging Data ob US: Radiologist's impression: [place] [address] Ultrasound Report Signed Patient: Lorena Treviño TMR#: [id number] : 1995Acct:[id number] Age/Sex: 23 / FDate of Service: 01/21/19 Loc: ED Accession Number: [id number] Procedure: US OB <= 14 weeks fetus Ordering Provider: Stephani Manzo D.O. PROCEDURE: US OB <= 14 WEEKS FETUS INDICATIONS: SPOTTING, 7 WEEKS OUTSIDE/PRIOR DATING DATA: Last menstrual period (LMP): 12/02/18. LMP-based estimated date of delivery (KATY): 09/08/19. First dating scan (date and location): 01/21/19. Estimated date of delivery (KATY) from first dating scan: 09/09/19. TECHNIQUE: Real-time scanning was performed of the fetus and maternal pelvic organs, with image documentation. Endovaginal scanning was also performed to better visualize the fetus and maternal ovaries. COMPARISON: None. FINDINGS: Embryo: A single live intrauterine is identified with heart motion detected at 149 beats per minute. A pole is well-visualized, which measures approximately 9 mm in length, correlating with an estimated gestational age of 7 weeks zero days. A yolk sac is faintly visualized. No mary-gestational hemorrhage is appreciated. Measurement variability in dating: +/- 4 weeks by LMP, +/- 7 days by mean sac diameter (use before 6 weeks gestation if crown-rump length not able to be measured), +/- 5 days by crown-rump length (up to 8 weeks 6 days gestation), +/- 7 days by crown-rump length (up to 13 weeks 6 days gestation). Maternal organs: Ovaries are not enlarged. There may be a corpus luteum cyst on the left. Limited images through the kidneys demonstrate no hydronephrosis. IMPRESSION: 1. Single live intrauterine at 7 weeks 0 days (KATY 09/09/19). 2. No subchorionic hemorrhage. Dictated by: Efraín Lazo M.D. on 01/21/2019 at 8:53 Approved by: Efraín Lazo M.D. on 01/21/2019 at 8:55 MDM Narrative Medical decision making narrative: 23-year-old female with with vaginal bleeding. Patient has a little bit of leukocyte esterase in urine. She is asymptomatic but with would treat. Started on Keflex. Ultrasound does not show any acute changes. Placed on pelvic rest can asked to follow up with switcher or her provider. Instructions were given for signs and symptoms to watch for and reasons to return patient is comfortable with this plan. Discharge Plan Departure Patient Disposition: Home Clinical Impression: Vaginal bleeding affecting early , Asymptomatic bacteriuria Discharge Date/Time: 01/21/19 10:20 Interventions: ED Discharge Assessment Last Done: 01/21/19 10:19 Instructions: DI for Vaginal Bleeding During Activity Restrictions/Additional Instructions: Follow-up in the next week for recheck with your OBGYN or provider, call for an appointment. Continue vitamins as prescribed. Take antibiotics until gone. Continue with pelvic rest until cleared by your OBGYN. This includes no sexual activity, heavy lifting, do not use tampons. Return to the emergency department for fevers greater 100.4 F, new abdominal or pelvic pain, rapidly increasing bleeding with large clots, passing out, new chest pain, shortness of breath, persistent vomiting other new or concerning symptoms. Prescriptions: New cephalexin [Keflex] 500 mg capsule 500 mg PO BID Qty: 10 RF: 0 No Action pyridoxine (vitamin B6) [Vitamin B-6] 50 mg Tablet 50 mg PO DAILY RF: 0 PNV cmb#95-ferrous fumarate-FA [] 28 mg iron- 800 mcg Tablet 1 tab PO DAILY RF: 0
--- NOTE | 2019-01-21 08:44 | ED_ITS ---
HPI - General Chief complaint: OB/Uterine Contractions Stated complaint: brown spotting, 7 weeks Time Seen by Provider: 01/21/19 08:36 Source: patient and family ( at bedside.) Mode of arrival: ambulatory Limitations: no limitations History of Present Illness HPI Narrative: This is a 23-year-old female comes to the emergency department with complaint of spotting. Patient states she is about 7 weeks . Her last menstrual period was December 02, 2018. She states she normally has regular periods. She states that she noticed a little bit of bright red blood last night very small amount and then a little bit of brownish blood this morning. Patient states that she has been quite constipated, she has had to strain it has been painful when she has a bowel movement. He denies any active abdominal pain at this time. She has not had any passing out. Occasionally feels a little l ightheaded. She has had nausea and occasional vomiting. She denies any chest pain or shortness of breath. She denies any medical issues other than some nerve damage in one foot. She is taking prenatals and vitamin B6. Patient has not had any care to this point. She has a schedule appointment at 10 weeks at the [facility] but has not been assigned a provider. Patient denies any surgeries. She does not smoke, she does not drink any alcohol or use any illicit. She is accompanied by her . Date of Last Menstrual Period: 12/02/18 Patient : Yes Expected Date of Delivery: 09/08/19 Related Data Home Medications Medication Instructions Recorded Confirmed PNV cmb#95-ferrous fumarate-FA 1 tab PO DAILY 01/21/19 01/21/19 [] pyridoxine (vitamin B6) [Vitamin 50 mg PO DAILY 01/21/19 01/21/19 B-6] Previous Rx's Medication Instructions Recorded cephalexin [Keflex] 500 mg PO BID #10 cap 01/21/19 Allergies Allergy/AdvReac Type Severity Reaction Status Date / Time No Known Allergies Allergy Uncoded 01/21/19 08:27 Review of Systems Review of Systems ROS Unobtainable: All systems reviewed & are unremarkable except as noted in HPI and below Constitutional Denies chills and Denies fever(s) Cardiovascular Denies chest pain, Denies syncope, Denies irregular heart rhythm, Reports lightheadedness (mild occasional), Denies palpitations, Denies dyspnea and Denies dyspnea on exertion Respiratory Denies dyspnea and Denies dyspnea on exertion Gastrointestinal Gastrointestinal: Denies abdominal pain, Denies melena, Denies hematochezia, Denies change in bowel habits, Reports constipation, Denies diarrhea, Reports nausea (daily) and Reports vomiting (occasionally) Genitourinary Reports as per HPI, Reports abnormal vaginal bleeding, Denies hematuria, Denies urinary frequency, Denies flank pain, Denies urinary incontinence, Denies urinary hesitancy, Denies urinary urgency and Denies vaginal discharge Neurologic Denies syncope Endocrine Denies palpitations PMFSH - Past Medical History 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 Surgical history: Reports no surgical history Date of Last Menstrual Period: 12/02/18 Patient : Yes Expected Date of Delivery: 09/08/19 Exam Narrative Exam Narrative: GENERAL: Alert and oriented x three, well-nourished, well- appearing female in no acute distress. HEENT: Head normocephalic, atraumatic, EOMI, pupils reactive, face symmetric, moist mucous membranes NECK: Supple, full range of motion CARDIOVASCULAR: Regular rate and rhythm without murmurs, rubs or gallops. RESPIRATORY: Breath sounds equal bilaterally, no wheezes rales or rhonchi. ABDOMEN: Soft, nontender. Normoactive bowel sounds all 4 quadrants. No guarding or rebound, rigidity, no mass : No CVA tenderness EXTREMITIES: Normal range of motion, no clubbing or edema. Neurovascularly intact NEUROLOGICAL: Cranial nerves II through XII grossly intact. Moving all extremities SKIN: Warm, dry, no petechiae, no rashes or lesions. Initial Vital Signs Initial Vital Signs: Vital Signs Temperature 98.4 F 01/21/19 08:24 Pulse Rate 68 01/21/19 08:24 Respiratory Rate 18 01/21/19 08:24 Blood Pressure 108/62 01/21/19 08:24 Pulse Oximetry 98 01/21/19 08:24 Course Orders Ordered: ED Orders 01/21/19 09:53 Urine Culture Stat Urine Microscopic Stat Vital Signs - 8 hr 01/21/19 08:24 01/21/19 10:02 Temperature 98.4 F Pulse Rate 68 68 Respiratory Rate 18 18 Blood Pressure 108/62 Blood Pressure [Right Arm] 88/45 L Pulse Oximetry 98 100 MDM - OB/Uterine Contractions Lab Data Attestation: I reviewed the patient's lab results. Result diagrams: 01/21/19 08:51 Lab Results 01/21/19 01/21/19 01/21/19 Range/Units 08:51 08:51 08:51 WBC 8.1 (4.5-11.0) X10^3/uL RBC 4.48 (4.0-5.2) X10^6/uL Hgb 13.5 (12.0-16.0) g/dL Hct 39.3 (36-46) % MCV 87.7 (80-100) fL MCH 30.2 (26-34) PG MCHC 34.4 (30-36) % RDW 13.0 (11.6-14.8) % Plt Count 203 (150-400) X10^3/uL Neut % (Auto) 73.7 (50-75) % Lymph % (Auto) 17.9 L (25-40) % [place] % (Auto) 7.2 (3-14) % Eos % (Auto) 0.7 L (2-4) % Baso % (Auto) 0.5 (0-2) % Neut # (Auto) 6000 (8163-4368) /uL Lymph # (Auto) 1400 (1650-4604) /uL [place] # (Auto) 600 (0-900) /uL Eos # (Auto) 100 (0-450) /uL Baso # (Auto) 0 (0-100) /uL HCG, Quant [id number] mIU/mL Urine RBC (0-5/HPF) Urine WBC (0-5/HPF) Ur Squamous Epith Cells (0-5/HPF) Ur Transition Epith Cell (0-5/HPF) Urine Bacteria (None) Ur Culture Indicated? Micro UA Comment Blood Type O Positive 01/21/19 Range/Units 09:53 WBC (4.5-11.0) X10^3/uL RBC (4.0-5.2) X10^6/uL Hgb (12.0-16.0) g/dL Hct (36-46) % MCV (80-100) fL MCH (26-34) PG MCHC (30-36) % RDW (11.6-14.8) % Plt Count (150-400) X10^3/uL Neut % (Auto) (50-75) % Lymph % (Auto) (25-40) % [place] % (Auto) (3-14) % Eos % (Auto) (2-4) % Baso % (Auto) (0-2) % Neut # (Auto) (0388-9729) /uL Lymph # (Auto) (7029-8534) /uL [place] # (Auto) (0-900) /uL Eos # (Auto) (0-450) /uL Baso # (Auto) (0-100) /uL HCG, Quant mIU/mL Urine RBC 1-5/hpf (0-5/HPF) Urine WBC 1-5/hpf (0-5/HPF) Ur Squamous Epith Cells 5-10 /hpf H (0-5/HPF) Ur Transition Epith Cell 1-5/hpf (0-5/HPF) Urine Bacteria Few (2-10) H (None) Ur Culture Indicated? Specimen cultured Micro UA Comment + gene esterase Blood Type Point of Care Testing Test Results Positive Urine Dip Bedside Urine Glucose Negative Bedside Urine Bilirubin - Negative Bedside Urine Ketone - Negative Urine Specific [place] 1.015 Bedside Urine Occult Blood +/- Bedside Urine pH 6.5 Bedside Urine Protein - Negative Bedside Urine Urobilinogen - Negative Bedside Urine Nitrite - Negative Bedside Urine Leukocytes + 70 Esterase Imaging Data ob US: Radiologist's impression: [place] [address] Ultrasound Report Signed Patient: Lorena Treviño TMR#: [id number] : 1995Acct:[id number] Age/Sex: FDate of Service: 01/21/19 Loc: ED Accession Number: [id number] Procedure: US OB <= 14 weeks fetus Ordering Provider: Stephani Manzo D.O. PROCEDURE: US OB <= 14 WEEKS FETUS INDICATIONS: SPOTTING, 7 WEEKS OUTSIDE/PRIOR DATING DATA: Last menstrual period (LMP): 12/02/18. LMP-based estimated date of delivery (KATY): 09/08/19. First dating scan (date and location): 01/21/19. Estimated date of delivery (KATY) from first dating scan: 09/09/19. TECHNIQUE: Real-time scanning was performed of the fetus and maternal pelvic organs, with image documentation. Endovaginal scanning was also performed to better visualize the fetus and maternal ovaries. COMPARISON: None. FINDINGS: Embryo: A single live intrauterine is identified with heart motion detected at 149 beats per minute. A pole is well-visualized, which measures approximately 9 mm in length, correlating with an estimated gestational age of 7 weeks zero days. A yolk sac is faintly visualized. No mary-gestational hemorrhage is appreciated. Measurement variability in dating: +/- 4 weeks by LMP, +/- 7 days by mean sac diameter (use before 6 weeks gestation if crown-rump length not able to be measured), +/- 5 days by crown-rump length (up to 8 weeks 6 days gestation), +/- 7 days by crown-rump length (up to 13 weeks 6 days gestation). Maternal organs: Ovaries are not enlarged. There may be a corpus luteum cyst on the left. Limited images through the kidneys demonstrate no hydronephrosis. IMPRESSION: 1. Single live intrauterine at 7 weeks 0 days (KATY 09/09/19). 2. No subchorionic hemorrhage. Dictated by: Efraín Lazo M.D. on 01/21/2019 at 8:53 Approved by: Efraín Lazo M.D. on 01/21/2019 at 8:55 MDM Narrative Medical decision making narrative: 23-year-old female with with vaginal bleeding. Patient has a little bit of leukocyte esterase in urine. She is asymptomatic but with would treat. Started on Keflex. Ultrasound does not show any acute changes. Placed on pelvic rest can asked to follow up with party plan demonstrator or her provider. Instructions were given for signs and symptoms to watch for and reasons to return patient is comfortable with this plan. Discharge Plan Departure Patient Disposition: Home Clinical Impression: Vaginal bleeding affecting early , Asymptomatic bacteriuria Discharge Date/Time: 01/21/19 10:20 Interventions: ED Discharge Assessment Last Done: 01/21/19 10:19 Instructions: DI for Vaginal Bleeding During Activity Restrictions/Additional Instructions: Follow-up in the next week for recheck with your OBGYN or provider, call for an appointment. Continue vitamins as prescribed. Take antibiotics until gone. Continue with pelvic rest until cleared by your OBGYN. This includes no sexual activity, heavy lifting, do not use tampons. Return to the emergency department for fevers greater 100.4 F, new abdominal or pelvic pain, rapidly increasing bleeding with large clots, passing out, new chest pain, shortness of breath, persistent vomiting other new or concerning symptoms. Prescriptions: New cephalexin [Keflex] 500 mg capsule 500 mg PO BID Qty: 10 RF: 0 No Action pyridoxine (vitamin B6) [Vitamin B-6] 50 mg Tablet 50 mg PO DAILY RF: 0 PNV cmb#95-ferrous fumarate-FA [] 28 mg iron- 800 mcg Tablet 1 tab PO DAILY RF: 0
[2019-01-21 09:07] LABS: Add Manual Diff / Slide Review NO; Basophils Absolute Auto 0 /uL (0-100); Basophils Percent Auto 0.5 % (0-2); Eosinophils Absolute Auto 100 /uL (0-450); Eosinophils Percent Auto 0.7 % (2-4); Hematocrit 39.3 % (36-46); Hemoglobin 13.5 g/dL (12.0-16.0); Lymphocytes Absolute Auto 1400 /uL (1100-4500); Lymphocytes Percent Auto 17.9 % (25-40); Mean Corpuscular HGB Conc 34.4 % (30-36); Mean Corpuscular Hemoglobin 30.2 PG (26-34); Mean Corpuscular Volume 87.7 fL (80-100); Monocytes Absolute Auto 600 /uL (0-900); Monocytes Percent Auto 7.2 % (3-14); Neutrophils Absolute Auto 6000 /uL (1500-7000); Neutrophils Percent Auto 73.7 % (50-75); Platelet Count 203 X10^3/uL (150-400); Red Blood Cell Count 4.48 X10^6/uL (4.0-5.2); White Blood Cell Count 8.1 X10^3/uL (4.5-11.0)
[2019-01-21 09:56] LABS: HCG Quantitative /Beta subunit 104270 mIU/mL
[2019-01-21 10:02] VITALS: BP 88/45; PULSE 68; RESP 18; O2SAT 100
[2019-01-21 10:32] LABS: Bacteria Urine Few (2-10); RBC Urine 1-5/HPF (0-5/HPF); Squamous Epithelial Cell Urine 5-10 /HPF (0-5/HPF); Transitional Epi Cells Urine 1-5/HPF (0-5/HPF); WBC Urine 1-5/HPF (0-5/HPF)
[2019-01-21 10:33] LABS: Culture Indicated Urine Specimen Cultured
== END 2019-01-21 10:20 | disposition home or self-care (01) ==
PROVIDERS: Emergency Provider Emergency Medicine
DX: O20.8 Other hemorrhage in early pregnancy (principal); R82.71 Bacteriuria; Z3A.01 Less than 8 weeks gestation of pregnancy
CPT/HCPCS: 36415; 76801; 81003; 81015; 81025; 84702; 85025; 86900; 86901; 87086; 99283; 99284

== ENCOUNTER 2019-01-30 16:20 | Emergency (ER) | payer OTHER, SELFPAY ==
[2019-01-30 16:33] VITALS: BP 105/58; PULSE 71; RESP 16; TEMP 36.7; O2SAT 99; BMI 23.8
--- NOTE | 2019-01-30 16:35 | DI.US.S_ITS ---
PROCEDURE: US OB <= 14 WEEKS FETUS INDICATIONS: VAG BLEEDING, 8 WEEKS OUTSIDE/PRIOR DATING DATA: Last menstrual period (LMP): 12/02/18. LMP-based estimated date of delivery (KATY): 09/08/19. First dating scan (date and location): 01/21/19. Estimated date of delivery (KATY) from first dating scan: 09/09/19. TECHNIQUE: Real-time scanning was performed of the fetus and maternal pelvic organs, with image documentation. Endovaginal scanning was also performed to better visualize the fetus and maternal ovaries. COMPARISON: [facility], OB <= 14 WEEKS FETUS, 01/21/2019, 9:19. FINDINGS: Embryo: There is a single intrauterine with a gestational sac, yolk sac, and pole identified. The crown rump length measures approximately 2 cm corresponding to a gestational age of 8 weeks 4 days. There is heart motion with a rate of 175 beats per minute. Measurement variability in dating: +/- 4 weeks by LMP, +/- 7 days by mean sac diameter (use before 6 weeks gestation if crown-rump length not able to be measured), +/- 5 days by crown-rump length (up to 8 weeks 6 days gestation), +/- 7 days by crown-rump length (up to 13 weeks 6 days gestation). Maternal organs: The left ovary is not well seen. The right ovary measures 3.3 x 2.0 x 1.7 cm. No adnexal masses. There is thickening and a heterogeneous hypoechoic appearance of the ventral uterine wall. There is internal vascularity within the uterine wall. IMPRESSION: 1. Single living intrauterine demonstrating appropriate interval growth with calculated gestational age of 8 weeks 4 days. 2. Thickened hypoechoic appearance of the ventral uterine wall may represent a uterine contraction. The differential includes a heterogeneous collection with ill-defined margins. Recommend correlation clinically and consider short term followup to demonstrate stability or resolution. Dictated by: Hema Cooley M.D. on 01/30/2019 at 18:09 Approved by: Hema Cooley M.D. on 01/30/2019 at 18:14
[2019-01-30 18:27] LABS: Add Manual Diff / Slide Review NO; Basophils Absolute Auto 100 /uL (0-100); Basophils Percent Auto 0.4 % (0-2); Eosinophils Absolute Auto 100 /uL (0-450); Eosinophils Percent Auto 0.6 % (2-4); Hematocrit 38.1 % (36-46); Hemoglobin 12.9 g/dL (12.0-16.0); Lymphocytes Absolute Auto 2200 /uL (1100-4500); Lymphocytes Percent Auto 17.1 % (25-40); Mean Corpuscular HGB Conc 33.8 % (30-36); Mean Corpuscular Hemoglobin 29.5 PG (26-34); Mean Corpuscular Volume 87.2 fL (80-100); Monocytes Absolute Auto 900 /uL (0-900); Monocytes Percent Auto 6.6 % (3-14); Neutrophils Absolute Auto 9700 /uL (1500-7000); Neutrophils Percent Auto 75.3 % (50-75); Platelet Count 208 X10^3/uL (150-400); Red Blood Cell Count 4.36 X10^6/uL (4.0-5.2); Red Cell Distribution Width 13.1 % (11.6-14.8); White Blood Cell Count 12.9 X10^3/uL (4.5-11.0)
[2019-01-30 18:45] LABS: RBC Urine 10-30/HPF (0-5/HPF); WBC Urine 5-10/HPF (0-5/HPF)
[2019-01-30 18:46] LABS: Alanine Aminotransferase 13 IU/L (9-52); Albumin 4.3 g/dL (3.5-5.0); Albumin Globulin Ratio 1.5 (1.0-2.8); Alkaline Phosphatase 54 U/L (38-126); Aspartate Aminotransferase 20 IU/L (14-36); Bilirubin Total 0.4 mg/dL (0.2-1.3); Blood Urea Nitrogen 10 mg/dL (7-17); Calcium 9.6 mg/dL (8.4-10.2); Carbon Dioxide 24 mmol/L (22-32); Chloride 100 mmol/L (98-107); Estimated Glomerular Filt Rate > 60.0 mL/min (>60); Globulin 2.8 g/dL (1.7-4.1); Glucose 85 mg/dL (70-100); HEMOLYSIS < 15 (0-50); Potassium 3.8 mmol/L (3.4-5.1); Sodium 135 mmol/L (137-145); Total Protein 7.1 g/dL (6.3-8.2)
[2019-01-30 18:46] LABS: Amorphous Sediment Urine 1+; Bacteria Urine Few (2-10); Culture Indicated Urine Specimen Cultured; Mucus Urine 3+ (Negative); Squamous Epithelial Cell Urine 1-5 /HPF (0-5/HPF)
--- NOTE | 2019-01-30 18:54 | ED.PREGNANCY ---
HPI - <Milady Covarrubias PA-C - Last Filed: 01/30/19 21:20> General Chief complaint: Vaginal Bleeding Stated complaint: bleeding 8 weeks Time Seen by Provider: 01/30/19 18:33 Source: patient Mode of arrival: ambulatory Limitations: no limitations History of Present Illness HPI Narrative: This 23-year-old female who is about 8 weeks comes to ED secondary to increase in bleeding. 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 She states she did have 1 episode of burning with urination initially today and brief pain in the right flank that has fully resolved. She does not have any increased frequency or urgency. She has not had any vomiting today, has had some nausea as usual with her . She denies any new fever. She denies any abdominal pain or cramping. She denies any flank pain. She has not had any recent illness. Related Data Home Medications Medication Instructions Recorded Confirmed PNV cmb#95-ferrous fumarate-FA 1 tab PO DAILY 01/21/19 01/21/19 [] pyridoxine (vitamin B6) [Vitamin 50 mg PO DAILY 01/21/19 01/21/19 B-6] Previous Rx's Medication Instructions Recorded cephalexin [Keflex] 500 mg PO BID #10 cap 01/21/19 nitrofurantoin monohyd/m-cryst 100 mg PO BID 5 Days #10 cap 01/30/19 [Macrobid] Allergies Allergy/AdvReac Type Severity Reaction Status Date / Time No Known Drug Allergies Allergy Verified 01/30/19 16:32 Review of Systems <Milady Covarrubias PA-C - Last Filed: 01/30/19 21:20> Review of Systems ROS Unobtainable: All systems reviewed & are unremarkable except as noted in HPI and below PMFSH - <Milady Covarrubias PA-C - Last Filed: 01/30/19 21:20> Past Medical History 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 Surgical history: Reports no surgical history Exam <Milady Covarrubias PA-C - Last Filed: 01/30/19 21:20> Narrative Exam Narrative: GENERAL APPEARANCE: Patient sitting comfortably, in no distress. HEENT: PERRL, EOMI, conjunctiva pink NECK: Supple LUNGS: Clear to auscultation bilaterally. HEART: Rate and rhythm regular, normal S1 and S2, no S3 or S4. ABDOMEN: Soft, nontender, nondistended, bowel sounds present x 4 quadrants, no CVAT EXTREMITIES: No edema, no calf tenderness DERMATOLOGIC: No jaundice or exanthem NEUROLOGIC: Alert and oriented with normal speech and coordination Initial Vital Signs Initial Vital Signs: Vital Signs Temperature 98.0 F 01/30/19 16:33 Pulse Rate 71 01/30/19 16:33 Respiratory Rate 16 01/30/19 16:33 Blood Pressure 105/58 L 01/30/19 16:33 Pulse Oximetry 99 01/30/19 16:33 <Tamera Sena DO - Last Filed: 01/31/19 03:12> Initial Vital Signs Initial Vital Signs: Vital Signs Temperature 98.0 F 01/30/19 16:33 Pulse Rate 71 01/30/19 16:33 Respiratory Rate 16 01/30/19 16:33 Blood Pressure 105/58 L 01/30/19 16:33 Pulse Oximetry 99 01/30/19 16:33 Course <Milady Covarrubias PA-C - Last Filed: 01/30/19 21:20> Additional Information: Patient appears stable during her stay not having pain or vomiting. She does appear to have UTI and will start Macrobid. progressing as expected on ultrasound and quantitative HCG. She does possible thickened uterine wall area on ultrasound and follow-up is recommended. [place] will call 1st thing in the morning and advised that she was here again so she can be seen for follow-up preferably tomorrow. Given a disc of ultrasound to review with OB. Advised return to ED if acutely worsening symptoms or new symptoms such as pain or fever in the interim and she is agreeable. Reviewed findings and plan with attending physician Dr. Sena who is agreeable with above. Orders Ordered: ED Orders 01/30/19 18:15 ABO RH Type Stat Complete Blood Count AUTO DIFF Stat Comprehensive Metabolic Panel Stat HCG Quantitative Stat 01/30/19 18:36 Urine Culture Stat Urine Microscopic Stat Vital Signs - 8 hr 01/30/19 20:16 Pulse Rate 90 Respiratory Rate 18 Blood Pressure [Left Arm] 102/78 Pulse Oximetry 99 <Tamera Sena DO - Last Filed: 01/31/19 03:12> Orders Ordered: ED Orders 01/30/19 18:15 ABO RH Type Stat Complete Blood Count AUTO DIFF Stat Comprehensive Metabolic Panel Stat HCG Quantitative Stat 01/30/19 18:36 Urine Culture Stat Urine Microscopic Stat Vital Signs - 8 hr 01/30/19 20:16 Pulse Rate 90 Respiratory Rate 18 Blood Pressure [Left Arm] 102/78 Pulse Oximetry 99 MDM - OB/Uterine Contractions <Milady Covarrubias PA-C - Last Filed: 01/30/19 21:20> Lab Data Result diagrams: 01/30/19 18:15 01/30/19 18:15 Lab Results 01/30/19 01/30/19 01/30/19 Range/Units 18:15 18:15 18:15 WBC 12.9 H (4.5-11.0) X10^3/uL RBC 4.36 (4.0-5.2) X10^6/uL Hgb 12.9 (12.0-16.0) g/dL Hct 38.1 (36-46) % MCV 87.2 (80-100) fL MCH 29.5 (26-34) PG MCHC 33.8 (30-36) % RDW 13.1 (11.6-14.8) % Plt Count 208 (150-400) X10^3/uL Neut % (Auto) 75.3 H (50-75) % Lymph % (Auto) 17.1 L (25-40) % [place] % (Auto) 6.6 (3-14) % Eos % (Auto) 0.6 L (2-4) % Baso % (Auto) 0.4 (0-2) % Neut # (Auto) 9700 H (5609-3567) /uL Lymph # (Auto) 2200 (8454-4145) /uL [place] # (Auto) 900 (0-900) /uL Eos # (Auto) 100 (0-450) /uL Baso # (Auto) 100 (0-100) /uL Sodium 135 L (137-145) mmol/L Potassium 3.8 (3.4-5.1) mmol/L Chloride 100 (98-107) mmol/L Carbon Dioxide 24 (22-32) mmol/L BUN 10 (7-17) mg/dL Creatinine 0.40 L (0.52-1.04) mg/dL Estimated GFR > 60.0 (>60) mL/min BUN/Creatinine Ratio 25.0 H (6-22) Glucose 85 (70-100) mg/dL Calcium 9.6 (8.4-10.2) mg/dL Total Bilirubin 0.4 (0.2-1.3) mg/dL AST 20 (14-36) IU/L ALT 13 (9-52) IU/L Alkaline Phosphatase 54 (38-126) U/L Total Protein 7.1 (6.3-8.2) g/dL Albumin 4.3 (3.5-5.0) g/dL Globulin 2.8 (1.7-4.1) g/dL Albumin/Globulin Ratio 1.5 (1.0-2.8) HCG, Quant 500331 mIU/mL Urine RBC (0-5/HPF) Urine WBC (0-5/HPF) Ur Squamous Epith Cells (0-5/HPF) Amorphous Sediment Urine Bacteria (None) Urine Mucus (Negative) Ur Culture Indicated? Blood Type O Positive 01/30/19 Range/Units 18:36 WBC (4.5-11.0) X10^3/uL RBC (4.0-5.2) X10^6/uL Hgb (12.0-16.0) g/dL Hct (36-46) % MCV (80-100) fL MCH (26-34) PG MCHC (30-36) % RDW (11.6-14.8) % Plt Count (150-400) X10^3/uL Neut % (Auto) (50-75) % Lymph % (Auto) (25-40) % [place] % (Auto) (3-14) % Eos % (Auto) (2-4) % Baso % (Auto) (0-2) % Neut # (Auto) (8774-8675) /uL Lymph # (Auto) (4493-9988) /uL [place] # (Auto) (0-900) /uL Eos # (Auto) (0-450) /uL Baso # (Auto) (0-100) /uL Sodium (137-145) mmol/L Potassium (3.4-5.1) mmol/L Chloride (98-107) mmol/L Carbon Dioxide (22-32) mmol/L BUN (7-17) mg/dL Creatinine (0.52-1.04) mg/dL Estimated GFR (>60) mL/min BUN/Creatinine Ratio (6-22) Glucose (70-100) mg/dL Calcium (8.4-10.2) mg/dL Total Bilirubin (0.2-1.3) mg/dL AST (14-36) IU/L ALT (9-52) IU/L Alkaline Phosphatase (38-126) U/L Total Protein (6.3-8.2) g/dL Albumin (3.5-5.0) g/dL Globulin (1.7-4.1) g/dL Albumin/Globulin Ratio (1.0-2.8) HCG, Quant mIU/mL Urine RBC 10-30/hpf H (0-5/HPF) Urine WBC 5-10/hpf H (0-5/HPF) Ur Squamous Epith Cells 1-5 /hpf (0-5/HPF) Amorphous Sediment 1+ Urine Bacteria Few (2-10) H (None) Urine Mucus 3+ H (Negative) Ur Culture Indicated? Specimen cultured Blood Type Urine Dip Bedside Urine Glucose Negative Bedside Urine Bilirubin - Negative Bedside Urine Ketone +/- 5 Urine Specific [place] 1.030 Bedside Urine Occult Blood +++ Bedside Urine pH 6.0 Bedside Urine Protein + 30 Bedside Urine Urobilinogen +/- 1mg Bedside Urine Nitrite - Negative Bedside Urine Leukocytes - Negative Esterase <Tamera Sena, - Last Filed: 01/31/19 03:12> Lab Data Lab Results 01/30/19 01/30/19 01/30/19 Range/Units 18:15 18:15 18:15 WBC 12.9 H (4.5-11.0) X10^3/uL RBC 4.36 (4.0-5.2) X10^6/uL Hgb 12.9 (12.0-16.0) g/dL Hct 38.1 (36-46) % MCV 87.2 (80-100) fL MCH 29.5 (26-34) PG MCHC 33.8 (30-36) % RDW 13.1 (11.6-14.8) % Plt Count 208 (150-400) X10^3/uL Neut % (Auto) 75.3 H (50-75) % Lymph % (Auto) 17.1 L (25-40) % [place] % (Auto) 6.6 (3-14) % Eos % (Auto) 0.6 L (2-4) % Baso % (Auto) 0.4 (0-2) % Neut # (Auto) 9700 H (8790-9976) /uL Lymph # (Auto) 2200 (7673-8584) /uL [place] # (Auto) 900 (0-900) /uL Eos # (Auto) 100 (0-450) /uL Baso # (Auto) 100 (0-100) /uL Sodium 135 L (137-145) mmol/L Potassium 3.8 (3.4-5.1) mmol/L Chloride 100 (98-107) mmol/L Carbon Dioxide 24 (22-32) mmol/L BUN 10 (7-17) mg/dL Creatinine 0.40 L (0.52-1.04) mg/dL Estimated GFR > 60.0 (>60) mL/min BUN/Creatinine Ratio 25.0 H (6-22) Glucose 85 (70-100) mg/dL Calcium 9.6 (8.4-10.2) mg/dL Total Bilirubin 0.4 (0.2-1.3) mg/dL AST 20 (14-36) IU/L ALT 13 (9-52) IU/L Alkaline Phosphatase 54 (38-126) U/L Total Protein 7.1 (6.3-8.2) g/dL Albumin 4.3 (3.5-5.0) g/dL Globulin 2.8 (1.7-4.1) g/dL Albumin/Globulin Ratio 1.5 (1.0-2.8) HCG, Quant 525314 mIU/mL Urine RBC (0-5/HPF) Urine WBC (0-5/HPF) Ur Squamous Epith Cells (0-5/HPF) Amorphous Sediment Urine Bacteria (None) Urine Mucus (Negative) Ur Culture Indicated? Blood Type O Positive 01/30/19 Range/Units 18:36 WBC (4.5-11.0) X10^3/uL RBC (4.0-5.2) X10^6/uL Hgb (12.0-16.0) g/dL Hct (36-46) % MCV (80-100) fL MCH (26-34) PG MCHC (30-36) % RDW (11.6-14.8) % Plt Count (150-400) X10^3/uL Neut % (Auto) (50-75) % Lymph % (Auto) (25-40) % [place] % (Auto) (3-14) % Eos % (Auto) (2-4) % Baso % (Auto) (0-2) % Neut # (Auto) (7864-6441) /uL Lymph # (Auto) (9585-3366) /uL [place] # (Auto) (0-900) /uL Eos # (Auto) (0-450) /uL Baso # (Auto) (0-100) /uL Sodium (137-145) mmol/L Potassium (3.4-5.1) mmol/L Chloride (98-107) mmol/L Carbon Dioxide (22-32) mmol/L BUN (7-17) mg/dL Creatinine (0.52-1.04) mg/dL Estimated GFR (>60) mL/min BUN/Creatinine Ratio (6-22) Glucose (70-100) mg/dL Calcium (8.4-10.2) mg/dL Total Bilirubin (0.2-1.3) mg/dL AST (14-36) IU/L ALT (9-52) IU/L Alkaline Phosphatase (38-126) U/L Total Protein (6.3-8.2) g/dL Albumin (3.5-5.0) g/dL Globulin (1.7-4.1) g/dL Albumin/Globulin Ratio (1.0-2.8) HCG, Quant mIU/mL Urine RBC 10-30/hpf H (0-5/HPF) Urine WBC 5-10/hpf H (0-5/HPF) Ur Squamous Epith Cells 1-5 /hpf (0-5/HPF) Amorphous Sediment 1+ Urine Bacteria Few (2-10) H (None) Urine Mucus 3+ H (Negative) Ur Culture Indicated? Specimen cultured Blood Type Urine Dip Bedside Urine Glucose Negative Bedside Urine Bilirubin - Negative Bedside Urine Ketone +/- 5 Urine Specific [place] 1.030 Bedside Urine Occult Blood +++ Bedside Urine pH 6.0 Bedside Urine Protein + 30 Bedside Urine Urobilinogen +/- 1mg Bedside Urine Nitrite - Negative Bedside Urine Leukocytes - Negative Esterase Discharge Plan Departure Patient Disposition: Home Clinical Impression: Vaginal bleeding affecting early UTI (urinary tract infection) Qualifiers: Urinary tract infection type: acute cystitis Hematuria presence: with hematuria Qualified Code(s): N30.01 - Acute cystitis with hematuria Discharge Date/Time: 01/30/19 20:18 Interventions: ED Discharge Assessment Last Done: 01/30/19 20:18 Instructions: DI for Urinary Tract Infection (UTI), DI for Vaginal Bleeding During Activity Restrictions/Additional Instructions: Your is progressing as expected on the ultrasound. Your lab work shows that the blood test number is going up as expected. The radiologist did see some slightly thick appearance of part of the uterus which does need follow up, it is not clear whether this was the source of the bleeding. You should call your music sound light technician 1st thing in the morning and let them know you were seen here in the emergency room again and need to follow up in the next day or 2 for recheck. Take your ultrasound disc for comparison. 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 Please start that tonight. As we talked about, please return to the emergency room right away if you have any acutely worsening symptoms again. I have given you the number of our music sound light technician at [facility] if for some reason [place], you can call and let them know that you were seen in the emergency room and need follow-up there. Prescriptions: New nitrofurantoin monohyd/m-cryst [Macrobid] 100 mg capsule 100 mg PO BID 5 Days Qty: 10 RF: 0 No Action pyridoxine (vitamin B6) [Vitamin B-6] 50 mg Tablet 50 mg PO DAILY RF: 0 PNV cmb#95-ferrous fumarate-FA [] 28 mg iron- 800 mcg Tablet 1 tab PO DAILY RF: 0 cephalexin [Keflex] 500 mg capsule 500 mg PO BID Qty: 10 RF: 0 Referrals: Brooke Sellers MD [Non-Staff] - <Tamera Sena DO - Last Filed: 01/31/19 03:12> Cosign ED Attending Cosperezature Attestation: I was immediately available in the department for consultation. Documentation has been reviewed. I agree with assessment and plan.
--- NOTE | 2019-01-30 19:11 | ED_ITS ---
HPI - <Milady Covarrubias PA-C - Last Filed: 01/30/19 21:20> General Chief complaint: Vaginal Bleeding Stated complaint: bleeding 8 weeks Time Seen by Provider: 01/30/19 18:33 Source: patient Mode of arrival: ambulatory Limitations: no limitations History of Present Illness HPI Narrative: This 23-year-old female who is about 8 weeks comes to ED secondary to increase in bleeding. 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 of shared services manager red/, and states that she has continued to have some blood now persistently and with wiping. She states she did have 1 episode of burning with urination initially today and brief pain in the right flank that has fully resolved. She does not have any increased frequency or urgency. She has not had any vomiting today, has had some nausea as usual with her . She denies any new fever. She denies any abdominal pain or cramping. She denies any flank pain. She has not had any recent illness. Related Data Home Medications Medication Instructions Recorded Confirmed PNV cmb#95-ferrous fumarate-FA 1 tab PO DAILY 01/21/19 01/21/19 [] pyridoxine (vitamin B6) [Vitamin 50 mg PO DAILY 01/21/19 01/21/19 B-6] Previous Rx's Medication Instructions Recorded cephalexin [Keflex] 500 mg PO BID #10 cap 01/21/19 nitrofurantoin monohyd/m-cryst 100 mg PO BID 5 Days #10 cap 01/30/19 [Macrobid] Allergies Allergy/AdvReac Type Severity Reaction Status Date / Time No Known Drug Allergies Allergy Verified 01/30/19 16:32 Review of Systems <Milady Covarrubias PA-C - Last Filed: 01/30/19 21:20> Review of Systems ROS Unobtainable: All systems reviewed & are unremarkable except as noted in HPI and below PMFSH - <Milady Covarrubias PA-C - Last Filed: 01/30/19 21:20> Past Medical History 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 Surgical history: Reports no surgical history Exam <Milady Covarrubias PA-C - Last Filed: 01/30/19 21:20> Narrative Exam Narrative: GENERAL APPEARANCE: Patient sitting comfortably, in no distress. HEENT: PERRL, EOMI, conjunctiva pink NECK: Supple LUNGS: Clear to auscultation bilaterally. HEART: Rate and rhythm regular, normal S1 and S2, no S3 or S4. ABDOMEN: Soft, nontender, nondistended, bowel sounds present x 4 quadrants, no CVAT EXTREMITIES: No edema, no calf tenderness DERMATOLOGIC: No jaundice or exanthem NEUROLOGIC: Alert and oriented with normal speech and coordination Initial Vital Signs Initial Vital Signs: Vital Signs Temperature 98.0 F 01/30/19 16:33 Pulse Rate 71 01/30/19 16:33 Respiratory Rate 16 01/30/19 16:33 Blood Pressure 105/58 L 01/30/19 16:33 Pulse Oximetry 99 01/30/19 16:33 <Tamera Sena DO - Last Filed: 01/31/19 03:12> Initial Vital Signs Initial Vital Signs: Vital Signs Temperature 98.0 F 01/30/19 16:33 Pulse Rate 71 01/30/19 16:33 Respiratory Rate 16 01/30/19 16:33 Blood Pressure 105/58 L 01/30/19 16:33 Pulse Oximetry 99 01/30/19 16:33 Course <Milady Covarrubias PA-C - Last Filed: 01/30/19 21:20> Additional Information: Patient appears stable during her stay not having pain or vomiting. She does appear to have UTI and will start Macrobid. progressing as expected on ultrasound and quantitative HCG. She does possible thickened uterine wall area on ultrasound and follow-up is recommended. [place] will call 1st thing in the morning and advised that she was here again so she can be seen for follow-up preferably tomorrow. Given a disc of ultrasound to review with OB. Advised return to ED if acutely worsening symptoms or new symptoms such as pain or fever in the interim and she is agreeable. Reviewed findings and plan with attending physician Dr. Sena who is agreeable with above. Orders Ordered: ED Orders 01/30/19 18:15 ABO RH Type Stat Complete Blood Count AUTO DIFF Stat Comprehensive Metabolic Panel Stat HCG Quantitative Stat 01/30/19 18:36 Urine Culture Stat Urine Microscopic Stat Vital Signs - 8 hr 01/30/19 20:16 Pulse Rate 90 Respiratory Rate 18 Blood Pressure [Left Arm] 102/78 Pulse Oximetry 99 <Tamera Sena DO - Last Filed: 01/31/19 03:12> Orders Ordered: ED Orders 01/30/19 18:15 ABO RH Type Stat Complete Blood Count AUTO DIFF Stat Comprehensive Metabolic Panel Stat HCG Quantitative Stat 01/30/19 18:36 Urine Culture Stat Urine Microscopic Stat Vital Signs - 8 hr 01/30/19 20:16 Pulse Rate 90 Respiratory Rate 18 Blood Pressure [Left Arm] 102/78 Pulse Oximetry 99 MDM - OB/Uterine Contractions <Milady Covarrubias PA-C - Last Filed: 01/30/19 21:20> Lab Data Result diagrams: 01/30/19 18:15 01/30/19 18:15 Lab Results 01/30/19 01/30/19 01/30/19 Range/Units 18:15 18:15 18:15 WBC 12.9 H (4.5-11.0) X10^3/uL RBC 4.36 (4.0-5.2) X10^6/uL Hgb 12.9 (12.0-16.0) g/dL Hct 38.1 (36-46) % MCV 87.2 (80-100) fL MCH 29.5 (26-34) PG MCHC 33.8 (30-36) % RDW 13.1 (11.6-14.8) % Plt Count 208 (150-400) X10^3/uL Neut % (Auto) 75.3 H (50-75) % Lymph % (Auto) 17.1 L (25-40) % Banks % (Auto) 6.6 (3-14) % Eos % (Auto) 0.6 L (2-4) % Baso % (Auto) 0.4 (0-2) % Neut # (Auto) 9700 H (1360-6735) /uL Lymph # (Auto) 2200 (9433-5755) /uL Banks # (Auto) 900 (0-900) /uL Eos # (Auto) 100 (0-450) /uL Baso # (Auto) 100 (0-100) /uL Sodium 135 L (137-145) mmol/L Potassium 3.8 (3.4-5.1) mmol/L Chloride 100 (98-107) mmol/L Carbon Dioxide 24 (22-32) mmol/L BUN 10 (7-17) mg/dL Creatinine 0.40 L (0.52-1.04) mg/dL Estimated GFR > 60.0 (>60) mL/min BUN/Creatinine Ratio 25.0 H (6-22) Glucose 85 (70-100) mg/dL Calcium 9.6 (8.4-10.2) mg/dL Total Bilirubin 0.4 (0.2-1.3) mg/dL AST 20 (14-36) IU/L ALT 13 (9-52) IU/L Alkaline Phosphatase 54 (38-126) U/L Total Protein 7.1 (6.3-8.2) g/dL Albumin 4.3 (3.5-5.0) g/dL Globulin 2.8 (1.7-4.1) g/dL Albumin/Globulin Ratio 1.5 (1.0-2.8) HCG, Quant 871516 mIU/mL Urine RBC (0-5/HPF) Urine WBC (0-5/HPF) Ur Squamous Epith Cells (0-5/HPF) Amorphous Sediment Urine Bacteria (None) Urine Mucus (Negative) Ur Culture Indicated? Blood Type O Positive 01/30/19 Range/Units 18:36 WBC (4.5-11.0) X10^3/uL RBC (4.0-5.2) X10^6/uL Hgb (12.0-16.0) g/dL Hct (36-46) % MCV (80-100) fL MCH (26-34) PG MCHC (30-36) % RDW (11.6-14.8) % Plt Count (150-400) X10^3/uL Neut % (Auto) (50-75) % Lymph % (Auto) (25-40) % Banks % (Auto) (3-14) % Eos % (Auto) (2-4) % Baso % (Auto) (0-2) % Neut # (Auto) (3012-4917) /uL Lymph # (Auto) (4112-8701) /uL Banks # (Auto) (0-900) /uL Eos # (Auto) (0-450) /uL Baso # (Auto) (0-100) /uL Sodium (137-145) mmol/L Potassium (3.4-5.1) mmol/L Chloride (98-107) mmol/L Carbon Dioxide (22-32) mmol/L BUN (7-17) mg/dL Creatinine (0.52-1.04) mg/dL Estimated GFR (>60) mL/min BUN/Creatinine Ratio (6-22) Glucose (70-100) mg/dL Calcium (8.4-10.2) mg/dL Total Bilirubin (0.2-1.3) mg/dL AST (14-36) IU/L ALT (9-52) IU/L Alkaline Phosphatase (38-126) U/L Total Protein (6.3-8.2) g/dL Albumin (3.5-5.0) g/dL Globulin (1.7-4.1) g/dL Albumin/Globulin Ratio (1.0-2.8) HCG, Quant mIU/mL Urine RBC 10-30/hpf H (0-5/HPF) Urine WBC 5-10/hpf H (0-5/HPF) Ur Squamous Epith Cells 1-5 /hpf (0-5/HPF) Amorphous Sediment 1+ Urine Bacteria Few (2-10) H (None) Urine Mucus 3+ H (Negative) Ur Culture Indicated? Specimen cultured Blood Type Urine Dip Bedside Urine Glucose Negative Bedside Urine Bilirubin - Negative Bedside Urine Ketone +/- 5 Urine Specific [place] 1.030 Bedside Urine Occult Blood +++ Bedside Urine pH 6.0 Bedside Urine Protein + 30 Bedside Urine Urobilinogen +/- 1mg Bedside Urine Nitrite - Negative Bedside Urine Leukocytes - Negative Esterase <Tamera Sena, - Last Filed: 01/31/19 03:12> Lab Data Lab Results 01/30/19 01/30/19 01/30/19 Range/Units 18:15 18:15 18:15 WBC 12.9 H (4.5-11.0) X10^3/uL RBC 4.36 (4.0-5.2) X10^6/uL Hgb 12.9 (12.0-16.0) g/dL Hct 38.1 (36-46) % MCV 87.2 (80-100) fL MCH 29.5 (26-34) PG MCHC 33.8 (30-36) % RDW 13.1 (11.6-14.8) % Plt Count 208 (150-400) X10^3/uL Neut % (Auto) 75.3 H (50-75) % Lymph % (Auto) 17.1 L (25-40) % Banks % (Auto) 6.6 (3-14) % Eos % (Auto) 0.6 L (2-4) % Baso % (Auto) 0.4 (0-2) % Neut # (Auto) 9700 H (5793-5391) /uL Lymph # (Auto) 2200 (5148-2319) /uL Banks # (Auto) 900 (0-900) /uL Eos # (Auto) 100 (0-450) /uL Baso # (Auto) 100 (0-100) /uL Sodium 135 L (137-145) mmol/L Potassium 3.8 (3.4-5.1) mmol/L Chloride 100 (98-107) mmol/L Carbon Dioxide 24 (22-32) mmol/L BUN 10 (7-17) mg/dL Creatinine 0.40 L (0.52-1.04) mg/dL Estimated GFR > 60.0 (>60) mL/min BUN/Creatinine Ratio 25.0 H (6-22) Glucose 85 (70-100) mg/dL Calcium 9.6 (8.4-10.2) mg/dL Total Bilirubin 0.4 (0.2-1.3) mg/dL AST 20 (14-36) IU/L ALT 13 (9-52) IU/L Alkaline Phosphatase 54 (38-126) U/L Total Protein 7.1 (6.3-8.2) g/dL Albumin 4.3 (3.5-5.0) g/dL Globulin 2.8 (1.7-4.1) g/dL Albumin/Globulin Ratio 1.5 (1.0-2.8) HCG, Quant 257008 mIU/mL Urine RBC (0-5/HPF) Urine WBC (0-5/HPF) Ur Squamous Epith Cells (0-5/HPF) Amorphous Sediment Urine Bacteria (None) Urine Mucus (Negative) Ur Culture Indicated? Blood Type O Positive 01/30/19 Range/Units 18:36 WBC (4.5-11.0) X10^3/uL RBC (4.0-5.2) X10^6/uL Hgb (12.0-16.0) g/dL Hct (36-46) % MCV (80-100) fL MCH (26-34) PG MCHC (30-36) % RDW (11.6-14.8) % Plt Count (150-400) X10^3/uL Neut % (Auto) (50-75) % Lymph % (Auto) (25-40) % Banks % (Auto) (3-14) % Eos % (Auto) (2-4) % Baso % (Auto) (0-2) % Neut # (Auto) (4553-4615) /uL Lymph # (Auto) (6414-2023) /uL Banks # (Auto) (0-900) /uL Eos # (Auto) (0-450) /uL Baso # (Auto) (0-100) /uL Sodium (137-145) mmol/L Potassium (3.4-5.1) mmol/L Chloride (98-107) mmol/L Carbon Dioxide (22-32) mmol/L BUN (7-17) mg/dL Creatinine (0.52-1.04) mg/dL Estimated GFR (>60) mL/min BUN/Creatinine Ratio (6-22) Glucose (70-100) mg/dL Calcium (8.4-10.2) mg/dL Total Bilirubin (0.2-1.3) mg/dL AST (14-36) IU/L ALT (9-52) IU/L Alkaline Phosphatase (38-126) U/L Total Protein (6.3-8.2) g/dL Albumin (3.5-5.0) g/dL Globulin (1.7-4.1) g/dL Albumin/Globulin Ratio (1.0-2.8) HCG, Quant mIU/mL Urine RBC 10-30/hpf H (0-5/HPF) Urine WBC 5-10/hpf H (0-5/HPF) Ur Squamous Epith Cells 1-5 /hpf (0-5/HPF) Amorphous Sediment 1+ Urine Bacteria Few (2-10) H (None) Urine Mucus 3+ H (Negative) Ur Culture Indicated? Specimen cultured Blood Type Urine Dip Bedside Urine Glucose Negative Bedside Urine Bilirubin - Negative Bedside Urine Ketone +/- 5 Urine Specific [place] 1.030 Bedside Urine Occult Blood +++ Bedside Urine pH 6.0 Bedside Urine Protein + 30 Bedside Urine Urobilinogen +/- 1mg Bedside Urine Nitrite - Negative Bedside Urine Leukocytes - Negative Esterase Discharge Plan Departure Patient Disposition: Home Clinical Impression: Vaginal bleeding affecting early UTI (urinary tract infection) Qualifiers: Urinary tract infection type: acute cystitis Hematuria presence: with hematuria Qualified Code(s): N30.01 - Acute cystitis with hematuria Discharge Date/Time: 01/30/19 20:18 Interventions: ED Discharge Assessment Last Done: 01/30/19 20:18 Instructions: DI for Urinary Tract Infection (UTI), DI for Vaginal Bleeding During Activity Restrictions/Additional Instructions: Your is progressing as expected on the ultrasound. Your lab work shows that the blood test number is going up as expected. The radiologist did see some slightly thick appearance of part of the uterus which does need follow up, it is not clear whether this was the source of the bleeding. You should call your adult services librarian 1st thing in the morning and let them know you were seen here in the emergency room again and need to follow up in the next day or 2 for recheck. Take your ultrasound disc for comparison. I have sent a prescription to [facility] for you to corn picker for urinary infection. Please start that tonight. As we talked about, please return to the emergency room right away if you have any acutely worsening symptoms again. I have given you the number of our adult services librarian at [facility] if for some reason [place], you can call and let them know that you were seen in the emergency room and need follow-up there. Prescriptions: New nitrofurantoin monohyd/m-cryst [Macrobid] 100 mg capsule 100 mg PO BID 5 Days Qty: 10 RF: 0 No Action pyridoxine (vitamin B6) [Vitamin B-6] 50 mg Tablet 50 mg PO DAILY RF: 0 PNV cmb#95-ferrous fumarate-FA [] 28 mg iron- 800 mcg Tablet 1 tab PO DAILY RF: 0 cephalexin [Keflex] 500 mg capsule 500 mg PO BID Qty: 10 RF: 0 Referrals: Brooke Sellers MD [Non-Staff] - <Tamera Sena DO - Last Filed: 01/31/19 03:12> Cosign ED Attending Cosperezature Attestation: I was immediately available in the department for consultation. Documentation has been reviewed. I agree with assessment and plan.
[2019-01-30 19:27] LABS: HCG Quantitative /Beta subunit 168690 mIU/mL
[2019-01-30 20:16] VITALS: BP 102/78; PULSE 90; RESP 18; O2SAT 99
== END 2019-01-30 20:18 | disposition home or self-care (01) ==
PROVIDERS: Emergency Medicine; Emergency Provider Internal Medicine
DX: O20.8 Other hemorrhage in early pregnancy (principal); N30.01 Acute cystitis with hematuria; Z3A.08 8 weeks gestation of pregnancy
CPT/HCPCS: 36415; 76801; 80053; 81003; 81015; 84702; 85025; 86900; 86901; 87077; 87086; 99283; 99284

== ENCOUNTER → 2019-05-26 09:34 | Outpatient (CLI) | payer OTHER, SELFPAY | PROVIDERS: Visit Provider Specialist | DX: O26.899 Other specified pregnancy related conditions, unspecified trimester (principal); R30.0 Dysuria | CPT/HCPCS: 87077; 87086 ==

== ENCOUNTER → 2019-06-29 08:23 | Outpatient (CLI) | payer OTHER, SELFPAY ==
[2019-06-29 10:01] LABS: Hematocrit 33.8 % (36-46); Hemoglobin 11.4 g/dL (12.0-16.0)
[2019-06-29 10:16] LABS: GTT (PREG) 1 Hour PP 50gm Dose 124 mg/dL (76-139)
== END ==
PROVIDERS: Visit Provider Obstetrics & Gynecology
DX: Z34.03 Encounter for supervision of normal first pregnancy, third trimester (principal)
CPT/HCPCS: 36415; 82950; 85014; 85018

== ENCOUNTER → 2019-08-08 12:24 | Outpatient (CLI) | payer OTHER, SELFPAY ==
[2019-08-09 09:38] LABS: Strep Grp B PCR NEG for Grp B Strep
== END ==
PROVIDERS: Visit Provider Obstetrics & Gynecology
DX: Z34.03 Encounter for supervision of normal first pregnancy, third trimester (principal); Z3A.35 35 weeks gestation of pregnancy
CPT/HCPCS: 87653

== ENCOUNTER 2019-09-04 06:06 | Outpatient (CLI) | payer OTHER, SELFPAY ==
--- NOTE | 2019-09-04 17:33 | PM.OBTRLD ---
Visit Information Visit Information Date of evaluation: 09/04/19 Primary OB Provider: Roberto Juarez On-call OB Provider: Megan Davila Reason for Evaluation: Yes rule out labor Vital Signs Vital Signs: Blood pressure 107/73, pulse of 88, temperature 36.7? [facility] Medical History (Updated 09/04/19 @ 17:35 by Megan Davila MD) Acne (Chronic ~2014) Anxiety (Chronic ~2015) Depression (Chronic ~2015) Foot pain (Chronic ~2018) Frequent UTI (Chronic ~2014) Headache (Chronic ~2014) Healthy adult (Chronic) History of migraine (Chronic ~2014) History of TMJ disorder (Chronic) Nerve lesion of right lower extremity (Chronic) Ovarian cyst (Resolved ~2015) Peripheral neuropathy (Chronic ~2018) Tinnitus (Chronic ~2015) Surgical History (Updated 06/27/19 @ 22:09 by Giovanna Siu) Anesthesia (Resolved) History of tonsillectomy and adenoidectomy (Resolved ~2014) [place] teeth removed (Resolved ~2008) Family History (Updated 06/27/19 @ 22:14 by Giovanna Siu) Father Hyperlipidemia Syringomyelia Grandfather Cancer Diabetes mellitus History of heart disease Hypertension Hyperlipidemia Grandmother Cancer Grandfather Bladder cancer Grandmother Mental health problem Dissociative identity disorder Social History Smoking Status: Former smoker Evaluation Evaluation Baseline heart rate: 125 Variability: Moderate (11-25) monitor accelerations: Present monitor decelerations: Absent Contraction Frequency (minutes): 5 Uterine Contraction Intensity: Mild Category of Tracing: I Cervical dilation (cm): 1 Cervical effacement (%): 90 station: -2 Diagnosis, Plan/Disposition Final Diagnosis (1) Premature uterine contractions, antepartum: Current Visit: No Status: Acute (2) 39 weeks gestation of : Current Visit: No Status: Acute Plan/Disposition Plan: Patient with prodromal labor. She was discharged home to return if she ruptured membranes, contractions increase, decreased movement OB Disposition: home
== END 2019-09-04 07:05 | disposition home or self-care (01) ==
LOC: LABOR 06:24 → OB 14:40
PROVIDERS: PCP Family Medicine; Visit Provider Specialist
DX: Z34.03 Encounter for supervision of normal first pregnancy, third trimester (principal); Z3A.39 39 weeks gestation of pregnancy
CPT/HCPCS: 59025; G0378; G0379

== ENCOUNTER 2019-09-09 09:08 | Outpatient (CLI) | payer OTHER, SELFPAY ==
--- NOTE | 2019-09-09 11:56 | PM.OBTRLD ---
Visit Information Visit Information Date of evaluation: 09/09/19 Primary OB Provider: Megan Davila Reason for Evaluation: Yes rule out labor [facility] Medical History (Updated 09/09/19 @ 14:17 by Megan Davila MD) Acne (Chronic ~2014) Anxiety (Chronic ~2015) Depression (Chronic ~2015) Foot pain (Chronic ~2018) Frequent UTI (Chronic ~2014) Headache (Chronic ~2014) Healthy adult (Chronic) History of migraine (Chronic ~2014) History of TMJ disorder (Chronic) Nerve lesion of right lower extremity (Chronic) Ovarian cyst (Resolved ~2015) Peripheral neuropathy (Chronic ~2018) Tinnitus (Chronic ~2015) Surgical History (Updated 06/27/19 @ 22:09 by Giovanna Siu) Anesthesia (Resolved) History of tonsillectomy and adenoidectomy (Resolved ~2014) [place] teeth removed (Resolved ~2008) Family History (Updated 06/27/19 @ 22:14 by Giovanna Siu) Father Hyperlipidemia Syringomyelia Grandfather Cancer Diabetes mellitus History of heart disease Hypertension Hyperlipidemia Grandmother Cancer Grandfather Bladder cancer Grandmother Mental health problem Dissociative identity disorder Social History Smoking Status: Former smoker Review of Systems Review of Systems Narrative: Patient complaining of contractions. No leakage of fluid. Good movement. No headaches, scotomata, epigastric pain. ROS Unobtainable: All systems reviewed & are unremarkable except as noted in HPI and below Exam Vital Signs (past 8 hours): Blood pressure 120/69, pulse 75, temperature 97? Evaluation Evaluation Baseline heart rate: 140 Variability: Moderate (11-25) monitor accelerations: Present monitor decelerations: Absent Contraction Frequency (minutes): 4 Uterine Contraction Intensity: Moderate Category of Tracing: I Cervical dilation (cm): 1 Cervical effacement (%): 60 station: -2 Diagnosis, Plan/Disposition Final Diagnosis (1) Premature uterine contractions, antepartum: Current Visit: No Status: Acute (2) 40 weeks gestation of : Current Visit: No Status: Acute Plan/Disposition Plan: Patient with contractions but no significant change in her cervix. She was given the option of continued monitoring or patient to go home and return if her contractions continue. Patient decided to be discharged home and will return with significant increasing contractions or rupture membranes or any other concerns. OB Disposition: home
== END 2019-09-09 12:00 | disposition home or self-care (01) ==
LOC: OB 09-11 15:21
PROVIDERS: PCP Family Medicine; Visit Provider Specialist
DX: O48.0 Post-term pregnancy (principal); Z3A.40 40 weeks gestation of pregnancy
CPT/HCPCS: 59025; G0378; G0379

== ENCOUNTER 2019-09-09 21:28 | Inpatient (IN) | payer OTHER, SELFPAY ==
--- NOTE | 2019-09-09 21:52 | PM.OBHP.1 ---
OB HPI Date/Time Date of admission: 09/09/19 Date Patient Seen: 09/09/19 Time Patient Seen: 21:52 History of Present Condition Chief complaint: EVAL OF LABOR : 1 Para: 0 Estimated Date of Delivery: 09/08/19 Estimated Gestational Age (weeks): 40 Narrative: Lorena Treviño is a 24 year old female admitted in active labor History of Present care: good care Dating criteria: LMP confirmed by 1st trimester US Ultrasounds: normal mid trimester US Obstetrical complications: none Medical complications: none Preadmission Labs Blood type: O (+) positive -: Antibody screen: negative, Cystic fibrosis screen: negative, GBS status: negative, HBsAG: negative, HIV: negative and RPR/VDLR: negative -: Chlamydia screen: not detected and Gonorrhea screen: not detected -: Rubella: immune and Varicella: immune HCAB: negative Quad screen: Normal 1 hr GTT: 124 Evaluation Evaluation Baseline heart rate: 110 Variability: Moderate (11-25) monitor accelerations: Present monitor decelerations: Absent Contraction Frequency (minutes): 4 Uterine Contraction Intensity: Strong/Firm Category of Tracing: I Cervical dilation (cm): 3 Cervical effacement (%): 100 station: -2 [facility] Medical History (Updated 09/09/19 @ 14:17 by Megan Davila MD) Acne (Chronic ~2014) Anxiety (Chronic ~2015) Depression (Chronic ~2015) Foot pain (Chronic ~2018) Frequent UTI (Chronic ~2014) Headache (Chronic ~2014) Healthy adult (Chronic) History of migraine (Chronic ~2014) History of TMJ disorder (Chronic) Nerve lesion of right lower extremity (Chronic) Ovarian cyst (Resolved ~2015) Peripheral neuropathy (Chronic ~2018) Tinnitus (Chronic ~2015) Surgical History (Updated 06/27/19 @ 22:09 by Giovanna Siu) Anesthesia (Resolved) History of tonsillectomy and adenoidectomy (Resolved ~2014) [place] teeth removed (Resolved ~2008) Family History (Updated 06/27/19 @ 22:14 by Giovanna Siu) Father Hyperlipidemia Syringomyelia Grandfather Cancer Diabetes mellitus History of heart disease Hypertension Hyperlipidemia Grandmother Cancer Grandfather Bladder cancer Grandmother Mental health problem Dissociative identity disorder Social History Smoking Status: Former smoker Meds Home Medications and Allergies Home Medications Medication Instructions Recorded Confirmed Type PNV cmb#95-ferrous fumarate-FA 1 tab PO DAILY 01/21/19 05/26/19 History [] pyridoxine (vitamin B6) [Vitamin 50 mg PO DAILY 01/21/19 05/26/19 History B-6] omeprazole 40 mg capsule,delayed 40 mg PO DAILY #30 cap 05/26/19 05/26/19 Rx release Allergies Allergy/AdvReac Type Severity Reaction Status Date / Time No Known Drug Allergies Allergy Verified 05/26/19 09:11 Review of Systems Review of Systems Narrative: Patient denies any leakage of fluid. No headaches, scotomata, epigastric pain. Good movement. Regular painful contractions. ROS Unobtainable: All systems reviewed & are unremarkable except as noted in HPI and below Exam Vital Signs (past 8 hours): Blood pressure 115/70, pulse 76, temperature 36.5? Narrative Exam Narrative: HEENT exam within normal limits. Lungs are clear to auscultation and percussion. Heart is regular rate and rhythm no S3-S4 or murmurs. Abdomen is soft, nontender. Fetus is vertex. Extremities without edema and nontender. Assessment and Plan Assessment and Plan Assessment and Plan narrative: Term in active labor. Anticipate vaginal delivery.
[2019-09-09 23:12] LABS: Add Manual Diff / Slide Review NO; Basophils Absolute Auto 0 /uL (0-100); Basophils Percent Auto 0.2 % (0-2); Eosinophils Absolute Auto 100 /uL (0-450); Hematocrit 32.6 % (36-46); Hemoglobin 10.8 g/dL (12.0-16.0); Lymphocytes Absolute Auto 2300 /uL (1100-4500); Lymphocytes Percent Auto 17.3 % (25-40); Mean Corpuscular HGB Conc 33.2 % (30-36); Mean Corpuscular Hemoglobin 27.9 PG (26-34); Mean Corpuscular Volume 84.1 fL (80-100); Monocytes Absolute Auto 1000 /uL (0-900); Monocytes Percent Auto 7.8 % (3-14); Neutrophils Absolute Auto 9900 /uL (1500-7000); Neutrophils Percent Auto 73.7 % (50-75); Platelet Count 203 X10^3/uL (150-400); Red Blood Cell Count 3.87 X10^6/uL (4.0-5.2); Red Cell Distribution Width 13.8 % (11.6-14.8); White Blood Cell Count 13.4 X10^3/uL (4.5-11.0)
[2019-09-10] MEDS: LACTATED RINGERS 1,000 ML 100 ML IV ×2 (00:56→03:40)
[2019-09-10] MEDS: FENT 2MCG/ML BUPIV 0.125% EPI 200 MCG/100 ML PLAST..BAG 10 MCG EPIDURAL ×2 (00:58→06:43)
[2019-09-10] MEDS: OXYTOCIN 10 UNIT/ML VIAL IM (10:31)
--- NOTE | 2019-09-10 10:50 | PM.OBPRVD ---
Labor & Delivery Delivery date: 09/10/19 Intrapartal events: Prolonged 2nd Stage > 2.5 hours Delivery monitor: external FHT and external uterine Route of delivery: L&D Laceration Description: Labial Delivery repair: vicryl (4 O) Estimated blood loss (mL): 400 Anesthesia type: Epidural Narrative: Patient arrived on Labor and delivery in active labor. She received an epidural catheter for pain control. heart tones category 1 to category 2 throughout labor. She had a spontaneous vaginal delivery. The viable female was placed on the maternal abdomen. After 1 minutes the cord was clamped, cut, and cord bloods obtained. The placenta delivered spontaneously, intact, with 3 vessels. There were no cervical vaginal or perineal tears. A left labial tear was repaired with 4 0 chromic suture. Both infant and mother doing well. Baby 1: Infant gender: Female Presentation: vertex position: Right Occiput Anterior cord vessel description: 3 Vessels score (1 min): 9 score (5 min): 9 Plan for aftercare: Routine post vaginal delivery
[2019-09-10] MEDS: DERMOPLAST SPRAY 20% 60 ML 1 SPRAY TOP (12:28)
[2019-09-10] MEDS: IBUPROFEN 600 MG TABLET PO ×2 (12:28→18:20)
[2019-09-10 15:07] VITALS: BP 120/69
[2019-09-10] MEDS: LANOLIN OINT 7 GM 1 APPLIC TOP (18:19)
[2019-09-11] MEDS: IBUPROFEN 600 MG TABLET PO ×2 (00:12→09:03)
[2019-09-11 08:22] LABS: Hematocrit 28.2 % (36-46); Hemoglobin 9.5 g/dL (12.0-16.0)
[2019-09-11] MEDS: DOCUSATE 100 MG CAPSULE PO (09:03)
[2019-09-11] MEDS: PRENATAL VIT,CALC/IRON/FOLIC 1 TABLET 1 TAB PO (09:03)
--- NOTE | 2019-09-11 13:16 | P.DS_ITS ---
Discharge Providers Provider Date of admission: 09/09/19 21:28 Discharge Date: 09/11/19 Primary care physician: Batsheva Thomas Consults: 09/09/19 22:57 Consult to Anesthesiology Urgent Comment: Consulting Provider: Anesthesiologist Reason for consultation: Epidural Has provider been notified: No 09/11/19 10:47 Consult to Returned Goods Repairer Routine Comment: Discharge provider: Megan Davila MD Summary Hospital Course Date Patient Seen: 09/11/19 Time Patient Seen: 13:17 Procedures: Epidural catheter, spontaneous vaginal delivery, repair of left labial tear Hospital Course: Patient arrived on Labor and delivery in active labor. She received an epidural catheter for pain control. She had a spontaneous vaginal delivery after 14 dalila rs of a viable female weighing 8 lb 5 oz. She had urinary retention and so had a Gleason catheter replaced but was able to urinate when removed after 12 hours. Patient denies any headaches, scotomata, epigastric pain. She is urinating well now. She is ambulatory. Peripartum Data Delivery Method: Natural Vaginal Laceration description: Labial Procedures: Epidural catheter, spontaneous vaginal delivery, repair of first- degree labial tear. complications: none [place] 1: Gender: Female Disposition of : home Discharge Diagnosis (1) Vaginal delivery: Status: Acute (2) Anemia: Status: Acute Problem Details: Anemia from poor intake Status at Discharge Cognitive/behavioral status at discharge: oriented Functional status at discharge: independent ambulation Overall status at discharge: patient is progressing back to baseline Time Spent with Patient Time attestation: Total time spent providing and/or coordinating discharge services: Objective Labs Result Diagrams: 09/11/19 07:11 Labs: Laboratory Results - last 24 hr 09/11/19 07:11 Hgb 9.5 L Hct 28.2 L Exam Vital Signs (past 8 hours): Blood pressure 112/71, pulse of 80, temperature 97.8? Narrative Exam Narrative: Abdomen is soft, nontender. Uterus is firm, at U, nontender. Mild lochia. Extremities without edema and nontender. Patient is O positive, rubella immune, received the Tdap in the 3rd trimester. Discharge Plan Discharge Plan Patient Disposition: Home Discharge orders & Medications Prescriptions: Continued omeprazole 40 mg capsule,delayed release(DR/EC) 40 mg PO DAILY Qty: 30 RF: 2 PNV cmb#95-ferrous fumarate-FA [] 28 mg iron- 800 mcg Tablet 1 tab PO DAILY RF: 0 Discontinued pyridoxine (vitamin B6) [Vitamin B-6] 50 mg Tablet 50 mg PO DAILY RF: 0 Follow up/Referrals: Megan Davila MD [Physician] - 1 Month Batsheva Thomas [Primary Care Provider] - Diet/Activity/Treatments Diet: Regular Activity: Nothing in vagina for 4 weeks Skin/Wound/Dressing Care Report to your healthcare provider any signs of infection, such as:: chills, fever and increased pain Discharge Data Primary Care Provider: Batsheva Thomas
[2019-09-11 13:25] VITALS: BP 112/71; PULSE 80; RESP 18; TEMP 36.6
== END 2019-09-11 14:10 | disposition home or self-care (01) | DRG 807 ==
PROVIDERS: Admitting Provider Specialist; PCP Family Medicine; Visit Provider Specialist
DX: O99.02 Anemia complicating childbirth (principal); Z37.0 Single live birth; D64.9 Anemia, unspecified; Z3A.40 40 weeks gestation of pregnancy; O63.1 Prolonged second stage (of labor); O70.0 First degree perineal laceration during delivery
CPT/HCPCS: 01967; 36415; 59050; 59410; 85014; 85018; 85025; 86850; 86900; 86901; G0379; J2590

== ENCOUNTER → 2020-04-24 09:28 | Outpatient (CLI) | payer OTHER, SELFPAY | PROVIDERS: Visit Provider Physician Assistant | DX: R30.0 Dysuria (principal) | CPT/HCPCS: 87077; 87086; 87186 ==

== ENCOUNTER 2020-05-24 10:00 | Emergency (ER) | payer OTHER, SELFPAY ==
[2020-05-24 10:07] VITALS: BP 112/74; PULSE 73; RESP 16; TEMP 36.7; O2SAT 98; BMI 23.3
[2020-05-24 10:11] VITALS: PULSE 70
--- NOTE | 2020-05-24 10:12 | DI.RAD.S_ITS ---
PROCEDURE: XR HAND LT MIN 3V INDICATIONS: trauma. pain at 4th MCP TECHNIQUE: 3 views of the hand(s) acquired. COMPARISON: None. FINDINGS: Bones: No fractures or dislocations. Carpal bones are normally aligned. No suspicious bony lesions. Soft tissues: No suspicious soft tissue calcifications. IMPRESSION: No gross acute left hand fracture or dislocation. Dictated by: Igor Reyes M.D. on 05/24/2020 at 9:42 Approved by: Igor Reyes M.D. on 05/24/2020 at 9:49
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
[2020-05-24] MEDS: IBUPROFEN 400 MG TABLET PO (10:29)
[2020-05-24] MEDS: ACETAMINOPHEN 325 MG TABLET PO (10:29)
[2020-05-24 11:23] VITALS: BP 114/76; PULSE 70; RESP 16; TEMP 36.7; O2SAT 100
== END 2020-05-24 11:23 | disposition home or self-care (01) ==
PROVIDERS: Emergency Provider Emergency Medicine
DX: S60.222A Contusion of left hand, initial encounter (principal); W50.1XXA Accidental kick by another person, initial encounter
CPT/HCPCS: 73130; 99283

== ENCOUNTER → 2020-08-26 08:51 | Outpatient (CLI) | payer OTHER, SELFPAY ==
[2020-08-26 09:26] LABS: Add Manual Diff / Slide Review NO; Basophils Absolute Auto 0 /uL (0-100); Basophils Percent Auto 0.2 % (0-2); Eosinophils Absolute Auto 100 /uL (0-450); Eosinophils Percent Auto 0.6 % (2-4); Hematocrit 38.7 % (36-46); Hemoglobin 13.2 g/dL (12.0-16.0); Lymphocytes Absolute Auto 1600 /uL (1100-4500); Lymphocytes Percent Auto 16.1 % (25-40); Mean Corpuscular HGB Conc 34.1 % (30-36); Mean Corpuscular Hemoglobin 29.8 PG (26-34); Mean Corpuscular Volume 87.3 fL (80-100); Monocytes Absolute Auto 700 /uL (0-900); Monocytes Percent Auto 6.4 % (3-14); Neutrophils Absolute Auto 7800 /uL (1500-7000); Neutrophils Percent Auto 76.7 % (50-75); Platelet Count 188 X10^3/uL (150-400); Red Blood Cell Count 4.44 X10^6/uL (4.0-5.2); Red Cell Distribution Width 13.1 % (11.6-14.8); White Blood Cell Count 10.2 X10^3/uL (4.5-11.0)
[2020-08-26 09:27] LABS: Appearance Urine UA CLEAR; Bilirubin Urine UA NEGATIVE (NEGATIVE); Color Urine UA YELLOW; Glucose Urine UA NEGATIVE (Negative); Ketones Urine UA NEGATIVE (NEGATIVE); Leukocyte Esterase Urine UA NEGATIVE (NEGATIVE); Nitrite Urine UA NEGATIVE (Negative); Occult Blood Urine UA TRACE-LYSED (Negative); Protein Urine UA NEGATIVE (Negative); Urobilinogen Urine UA 0.2 E.U./dL (0.2)
[2020-08-26 16:37] LABS: Hepatitis B Surface Antigen NEGATIVE s/c (NEGATIVE)
[2020-08-26 16:45] LABS: HIV 1 & 2 Ab/Ag 4th Gen Combo NEGATIVE (NEGATIVE); Hep C Virus Ab w/Reflex Quant NEGATIVE s/c (NEGATIVE)
[2020-08-27 07:35] LABS: RPR Screen Non Reactive (Non Reactive)
[2020-08-27 08:09] LABS: Varicella IgG Antibody 814 index (Immune >165)
== END ==
PROVIDERS: Referring Provider Specialist; Visit Provider Specialist
DX: Z34.81 Encounter for supervision of other normal pregnancy, first trimester (principal)
CPT/HCPCS: 36415; 80055; 81003; 86787; 86803; 86850; 86900; 86901; 87086; 87389